=== PATIENT | male | born 1960 | race American Indian/Alaskan Native ===

== ENCOUNTER 2017-11-13 15:05 | Emergency (ER) | payer MEDICARE ==
[2017-11-13] MEDS ORDERED: NACL 0.9% 1000 ML 1,000 ML ONE (15:49)
[2017-11-13] MEDS ORDERED: NACL 0.9% 1000 ML 1,000 ML IV ONE ×2 (15:56→16:36)
[2017-11-13 16:22] LABS: Eosinophils # (Auto) 0.1 K/mm3 (0.0-0.4); Hematocrit 30.8 % (35.5-45.6); Hemoglobin 10.8 gm/dl (11.8-15.2); Lymphocytes # (Auto) 0.9 K/mm3 (1.2-5.4); Lymphocytes % (Auto) 23.8 % (13.4-35.0); Mean Corpuscular HGB Conc 35 % (32-34); Mean Corpuscular Hemoglobin 41 pg (28-32); Mean Corpuscular Volume 117 fl (84-94); Monocytes # (Auto) 0.3 K/mm3 (0.0-0.8); Monocytes % (Auto) 7.3 % (0.0-7.3); Platelet Count 143 K/mm3 (140-440); Red Blood Count 2.62 M/mm3 (3.65-5.03)
--- NOTE | 2017-11-13 16:34 | Emergency Department Report ---
ED Fall HPI - General Chief Complaint: Fall Stated Complaint: HEAT EXHAUSTION Time Seen by Provider: 11/13/17 15:56 Source: patient, EMS Mode of arrival: Stretcher - History of Present Illness Initial Comments: 57-year-old history of EtOH last drink was yesterday was brought in by EMS after he was seen falling possible seizure here for evaluation of generalized weakness possible seizure possible ethanol withdrawal after he fell EMS was worried about heat exhaustion patient denies trauma denies any back pain chest pain abdominal pain admits to history of alcohol withdrawal symptoms in the past temperature is normal on arrival patient is awake and alert with good airway without other complaints MD Complaint: fall -: Gradual, hour(s), This afternoon Fall From: standing When Fall Occurred: unsure Fall Witnessed: no Place Fall Occurred: other (neighbors yard) Loss of Consciousness: unsure Prolonged Down Time?: no Symptoms Prior to Fall: none Severity: mild, moderate Severity scale (0 -10): 2 Context: tripped/slipped, alcohol use Associated Symptoms: neck pain, numbness (recent total nurses he thinks he fell because of his chronic peripheral neuropathy denies black or bloody stool). denies: headache, chest paint, shortness of breath, abdominal pain, hematuria, unable to walk, lightheaded, vertigo, confusion - Related Data Previous Rx's Medication Instructions Recorded Last Taken Type chlordiazePOXIDE [Librium] 50 mg PO Q8H #15 capsule 11/13/17 Unknown Rx Allergies Allergy/AdvReac Type Severity Reaction Status Date / Time No Known Allergies Allergy Unverified 11/13/17 16:00 ED Review of Systems ROS: Stated complaint: HEAT EXHAUSTION Other details as noted in HPI Comment: All other systems reviewed and negative Constitutional: denies: diaphoresis, fever, malaise Eyes: denies: eye discharge, vision change ENT: denies: dental pain, hearing loss, epistaxis Respiratory: denies: shortness of breath, SOB with exertion, SOB at rest, stridor Cardiovascular: denies: chest pain, palpitations, dyspnea on exertion, orthopnea , edema, paroxysmal nocturnal dyspnea Gastrointestinal: denies: abdominal pain, nausea, vomiting, diarrhea, constipation, hematemesis, melena, hematochezia Skin: denies: rash, lesions, change in color, change in hair/nails, pruritus Neurological: weakness. denies: headache, numbness, paresthesias, confusion, abnormal gait, vertigo Psychiatric: anxiety. denies: auditory hallucinations, visual hallucinations, homicidal thoughts, suicidal thoughts Hematological/Lymphatic: denies: easy bruising ED Past Medical Hx - Past Medical History Previous Medical History?: Yes Hx Hypertension: Yes Additional medical history: GI bleed - Surgical History Past Surgical History?: No Additional Surgical History: unk - Social History Smoking Status: Never Smoker Substance Use Type: Alcohol - Medications Home Medications: Home Medications Medication Instructions Recorded Confirmed Last Taken Type chlordiazePOXIDE [Librium] 50 mg PO Q8H #15 capsule 11/13/17 Unknown Rx ED Physical Exam - General Limitations: No Limitations General appearance: alert - Head Head exam: Present: normocephalic - Eye Eye exam: Present: PERRL, EOMI - ENT ENT exam: Present: normal exam, normal orophraynx - Neck Neck exam: Present: normal inspection. Absent: tenderness, meningismus - Respiratory Respiratory exam: Present: normal lung sounds bilaterally. Absent: respiratory distress, wheezes, rales, rhonchi, stridor, chest wall tenderness, accessory muscle use, decreased breath sounds, prolonged expiratory - Cardiovascular Cardiovascular Exam: Present: regular rate, normal rhythm - GI/Abdominal GI/Abdominal exam: Present: soft. Absent: distended, tenderness, guarding, rebound, rigid, mass, pulsatile mass - Extremities Exam Extremities exam: Present: normal inspection. Absent: pedal edema, joint swelling, calf tenderness - Back Exam Back exam: Present: normal inspection. Absent: CVA tenderness (R), CVA tenderness (L), muscle spasm, paraspinal tenderness, vertebral tenderness - Neurological Exam Neurological exam: Present: alert, oriented X3, CN II-XII intact, other (tremor noted upper extremity bilaterally likely ethanol withdrawal). Absent: motor sensory deficit - Skin Skin exam: Absent: cyanosis, diaphoretic, erythema, urticaria, vesicles, petechiae, pallor, abrasion, ecchymosis ED Course Vital Signs 11/13/17 11/13/17 11/13/17 15:29 15:57 16:00 Temperature 99.1 F Pulse Rate 81 76 Respiratory 20 16 14 Rate Blood Pressure 144/85 144/85 O2 Sat by Pulse 100 97 Oximetry 06/17/18 06/17/18 06/17/18 16:01 16:30 17:00 Temperature Pulse Rate 77 112 H Respiratory 16 9 L 19 Rate Blood Pressure 173/97 165/97 O2 Sat by Pulse 100 99 99 Oximetry 11/13/17 17:30 Temperature Pulse Rate 86 Respiratory 12 Rate Blood Pressure 158/95 O2 Sat by Pulse 98 Oximetry ED Medical Decision Making - Lab Data Result diagrams: 11/13/17 16:07 11/13/17 16:06 - EKG Data -: EKG Interpreted by Md EKG shows normal: sinus rhythm Rate: normal - EKG Data Interpretation: nonspecific ST-T wave pb - Radiology Data Radiology results: report reviewed - Medical Decision Making Symptoms are consistent with ethanol w/d patient was given fluids magnesium and thiamin as well as benzodiazepine, imaging studies of the brain and neck were obtained given the read as negative by the radiologist that is no acute process , A studies to show chronic pancytopenia likely related to ethanol use however he is not having any symptoms related to this his symptoms are improving ED with improving vital signs and tremor with fluids and benzodiazepines magnesium and be stable for outpatient follow-up no evidence of hyperthermia was documented in the ED although he probably has some he related cramps and dehydration because he has been out in the sun, no other ssx trauma, no evidence of sirs or infection at tthis time, stable outpt/ f/u, trop is neg, ekg nondiagnostic repeat vital signs were stable patient is ambulatory in the ED with assistance he will have someone come get him he appears to be at baseline mental status no other injuries were identified he does appear to be having ethanol w/d with improved vital signs he does not appear to be having evidence of DTs and is therefore stable for outpatient follow-up Critical care attestation.: If time is entered above; I have spent that time in minutes in the direct care of this critically ill patient, excluding procedure time. ED Disposition Clinical Impression: Status post fall, Alcohol withdrawal syndrome, Head injury Disposition: DC-01 TO HOME OR SELFCARE Is pt being admited?: No Condition: Stable Instructions: Minor Head Injury (ED), Alcohol Withdrawal (ED) Additional Instructions: See the doctor listed return immediately if new alarming symptoms take the medicines as directed follow up as needed with [facility] for detox Prescriptions: chlordiazePOXIDE [Librium] 50 mg PO Q8H #15 capsule Referrals: PRIMARY CARE, [Primary Care Provider] - 3-5 Days JENNIFER BAIRES MD [Staff Physician] - 3-5 Days Time of Disposition: 18:14
[2017-11-13] MEDS ORDERED: MAGNESIUM SULFATE IV ONE (16:36)
[2017-11-13] MEDS ORDERED: ATIVAN IV ONE (16:36)
[2017-11-13 16:41] LABS: Alanine Aminotransferase 14 units/L (7-56); BUN/Creatinine Ratio 10; Blood Urea Nitrogen 7 mg/dL (9-20); Calcium 9.2 mg/dL (8.4-10.2); Hemolysis Index 7
[2017-11-13] MEDS ORDERED: VITAMIN B-1 100 MG in NACL 0.9% 50 ML IV ONE (17:00)
[2017-11-13] MEDS ORDERED: MAGNESIUM SULFATE 1 GM in NACL 0.9% 50 ML IV ONE (17:00)
--- NOTE | 2017-11-13 17:09 | Cat Scan Report ---
FINAL REPORT PROCEDURE: CT head without contrast. TECHNIQUE: Computerized tomography of the head was performed without contrast material. HISTORY: Weakness. COMPARISON: No prior studies are available for comparison. FINDINGS: The ventricles are normal in size. There is mild cerebral atrophy. The alba matter and white matter appear normal. There are no mass lesions. There is no intracranial hemorrhage. The calvarium appears intact. The mastoid air cells are clear as far as visualized. There is mild mucosal thickening in both maxillary sinuses. IMPRESSION: Normal study for age.
--- NOTE | 2017-11-13 17:28 | Cat Scan Report ---
FINAL REPORT PROCEDURE: CT cervical spine without contrast. TECHNIQUE: Computerized tomography of the cervical spine was performed from the skull base to T1 without contrast material. HISTORY: Patient fell, neck pain. COMPARISON: No prior studies are available for comparison. FINDINGS: The cervical vertebrae have normal height and satisfactory alignment. There are no fractures. There is no subluxation. There is mild disc space narrowing at C5-6 and C6-7. The spinal canal appears widely patent. The facet joints appear satisfactory. The neural foramina are widely patent. The prevertebral soft tissues have normal thickness. IMPRESSION: No evidence of acute cervical spine injury.
[2017-11-14 00:02] VITALS: BP 145/90
== END 2017-11-14 08:00 | disposition home or self-care (01) ==
LOC: ED 15:05
DX: S09.90XA Unspecified injury of head, initial encounter (principal); I10 Essential (primary) hypertension; F10.239 Alcohol dependence with withdrawal, unspecified; W18.30XA Fall on same level, unspecified, initial encounter; Y93.89 Activity, other specified; Y99.8 Other external cause status; Y92.89 Other specified places as the place of occurrence of the external cause
CPT/HCPCS: 36415; 70450; 72125; 80053; 82550; 84484; 85025; 93005; 93010; 96361; 96365; 96366; 96375; 99285; J2060; J3411; J3475; J7030

== ENCOUNTER 2017-11-14 11:51 | Inpatient (IN) | payer MEDICARE ==
[2017-11-14 13:53] LABS: Basophils % (Auto) 0.9 % (0.0-1.8); Eosinophils # (Auto) 0.1 K/mm3 (0.0-0.4); Eosinophils % (Auto) 2.2 % (0.0-4.3); Hematocrit 31.3 % (35.5-45.6); Hemoglobin 10.8 gm/dl (11.8-15.2); Lymphocytes # (Auto) 1.1 K/mm3 (1.2-5.4); Lymphocytes % (Auto) 25.8 % (13.4-35.0); Mean Corpuscular HGB Conc 35 % (32-34); Mean Corpuscular Hemoglobin 41 pg (28-32); Mean Corpuscular Volume 119 fl (84-94); Monocytes # (Auto) 0.5 K/mm3 (0.0-0.8); Monocytes % (Auto) 11.6 % (0.0-7.3); Platelet Count 153 K/mm3 (140-440); Red Blood Count 2.63 M/mm3 (3.65-5.03); Red Cell Distribution Width 15.9 % (13.2-15.2)
[2017-11-14 14:11] LABS: BUN/Creatinine Ratio 7; Blood Urea Nitrogen 6 mg/dL (9-20); Calcium 8.8 mg/dL (8.4-10.2); Hemolysis Index 9
[2017-11-14 16:00] LABS: Bilirubin,Urine NEG (Negative); Blood,Urine SM (Negative); Color,Urine Yellow (Yellow); Hyaline Casts,Urine 8 /LPF; Mucus,Urine FEW /HPF; Protein,Urine <15 mg/dL mg/dL (Negative); Urobilinogen,Urine < 2.0 mg/dL (<2.0)
[2017-11-14 16:26] LABS: Amphetamine Screen,Urine PRESUMPTIVE NEGATIVE; Cannabinoid Screen,Urine PRESUMPTIVE NEGATIVE; Cocaine Screen,Urine PRESUMPTIVE NEGATIVE; Methadone Screen,Urine PRESUMPTIVE NEGATIVE; Opiate Screen,Urine PRESUMPTIVE NEGATIVE
[2017-11-14 16:41] LABS: Benzodiazepines Screen,Urine PRESUMPTIVE POSITIVE
[2017-11-14] MEDS ORDERED: K-DUR PO ONE (16:46)
--- NOTE | 2017-11-14 16:46 | Emergency Department Report ---
ED General Adult HPI - General Chief complaint: Weakness Stated complaint: AMS Time Seen by Provider: 11/14/17 16:46 Source: patient, EMS Mode of arrival: Stretcher Limitations: No Limitations - History of Present Illness Initial comments: Patient is a chronic alcoholic who comes to the ED asking for alcohol detoxification. He said his last drink was 2 days ago. He is having some shakes. He denies any other medical complaints. -: Gradual Severity scale (0 -10): 6 Associated Symptoms: denies other symptoms Treatments Prior to Arrival: none - Related Data Previous Rx's Medication Instructions Recorded Last Taken Type chlordiazePOXIDE [Librium] 50 mg PO Q8H #15 capsule 11/13/17 Unknown Rx Allergies Allergy/AdvReac Type Severity Reaction Status Date / Time No Known Allergies Allergy Unverified 11/13/17 16:00 ED Review of Systems ROS: Stated complaint: AMS Other details as noted in HPI Comment: All other systems reviewed and negative Constitutional: denies: chills, fever Eyes: denies: vision change ENT: denies: ear pain Respiratory: denies: cough, shortness of breath Cardiovascular: denies: chest pain, palpitations Endocrine: no symptoms reported Gastrointestinal: denies: abdominal pain, nausea, vomiting, diarrhea, constipation Genitourinary: denies: urgency, frequency Musculoskeletal: denies: back pain, joint swelling Skin: denies: rash, change in color Neurological: denies: headache, weakness Psychiatric: denies: anxiety, depression Hematological/Lymphatic: denies: easy bleeding, easy bruising ED Past Medical Hx - Past Medical History Hx Hypertension: Yes Additional medical history: GI bleed - Surgical History Additional Surgical History: unk - Social History Smoking Status: Current Every Day Smoker Substance Use Type: Alcohol - Medications Home Medications: Home Medications Medication Instructions Recorded Confirmed Last Taken Type chlordiazePOXIDE [Librium] 50 mg PO Q8H #15 capsule 11/13/17 Unknown Rx ED Physical Exam - General Limitations: No Limitations General appearance: alert, in no apparent distress - Head Head exam: Present: atraumatic, normocephalic, normal inspection - Eye Eye exam: Present: normal appearance, PERRL, EOMI Pupils: Present: normal accommodation - ENT ENT exam: Present: normal exam, normal orophraynx - Neck Neck exam: Present: normal inspection, full ROM - Respiratory Respiratory exam: Present: normal lung sounds bilaterally - Cardiovascular Cardiovascular Exam: Present: regular rate, normal rhythm, normal heart sounds - GI/Abdominal GI/Abdominal exam: Present: soft, normal bowel sounds. Absent: distended, tenderness, guarding - Extremities Exam Extremities exam: Present: normal inspection, full ROM, normal capillary refill - Back Exam Back exam: Present: normal inspection - Skin Skin exam: Present: warm, dry, intact, normal color ED Course Vital Signs 11/14/17 12:15 Temperature 98.8 F Pulse Rate 89 Respiratory 18 Rate Blood Pressure 130/70 O2 Sat by Pulse 99 Oximetry - Reevaluation(s) Reevaluation #1: 11/14/17 17:07 Patient will be admitted to the hospitalist Dr. Hansen for further evaluation and management. ED Medical Decision Making - Lab Data Result diagrams: 11/14/17 13:42 11/14/17 13:42 - Radiology Data Radiology results: report reviewed - Medical Decision Making Alcohol withdrawal. Critical care attestation.: If time is entered above; I have spent that time in minutes in the direct care of this critically ill patient, excluding procedure time. ED Disposition Clinical Impression: Alcohol abuse Alcohol withdrawal Qualifiers: Complication of substance-induced condition: with unspecified complication Qualified Code(s): F10.239 - Alcohol dependence with withdrawal, unspecified Disposition: DC-09 OP ADMIT IP TO THIS HOSP Is pt being admited?: Yes Does the pt Need Aspirin: No Condition: Stable Referrals: PRIMARY CARE, [Primary Care Provider] - 3-5 Days Time of Disposition: 17:00
[2017-11-14] MEDS ORDERED: ATIVAN IV ONE (17:03)
[2017-11-14] MEDS ORDERED: VITAMIN B-1 100 MG, FOLVITE 1 MG, INFUVITE 10 ML in NACL 0.9% 1000 ML 1,000 ML IV ONE (18:00)
--- NOTE | 2017-11-14 18:56 | History and Physical Report ---
History of Present Illness Chief complaint: I feel sick, and im shaking, I need help History of present illness: 57 YO Male with ETOH Dependence, HTN, NIcotine Dependence presents to ED for evaluation. Pt states that he has experienced tremors, agitation, insomnia, nausea, irritability, anxiety, headaches, confusion, diaphoresis, subjective fever, and loss of appetite over the past 2 days. Pt states thta his last drink was about 2 days ago. Pt seen and evaluated in ED and found to have ETOH Withdrawl. Pt admitted to [facility] for medical stabilization. Pt denies chills, CP, Palpitations, Trauma, BRBPR, Skin Rash, Leg swelling, calf pain, productive cough, or recent ill contacts. Past History Past Medical History: hypertension Past Surgical History: No surgical history, Other (reviewed) Social history: , smoking, alcohol abuse Family history: no significant family history (reviewed) Medications and Allergies Allergies Allergy/AdvReac Type Severity Reaction Status Date / Time No Known Allergies Allergy Unverified 11/13/17 16:00 Home Medications Medication Instructions Recorded Confirmed Last Taken Type chlordiazePOXIDE [Librium] 50 mg PO Q8H #15 capsule 11/13/17 Unknown Rx Active Meds: Active Medications Thiamine HCl 100 mg/ Folic Acid 1 mg/ Multivitamins/Minerals 10 ml/ Sodium Chloride 1,011.2 mls @ 250 mls/hr IV ONCE ONE Stop: 11/14/17 22:02 Last Admin: 11/14/17 18:37 Dose: 250 mls/hr Review of Systems Constitutional: weight loss, anorexia, poor appetite, no weight gain, no fever, no chills Ears, nose, mouth and throat: no ear pain, no ear discharge, no tinnitis, no decreased hearing, no nose pain, no nasal congestion Cardiovascular: no chest pain, no orthopnea, no palpitations, no rapid/ irregular heart beat, no edema, no syncope, no lightheadedness Respiratory: no cough, no cough with sputum, no hemoptysis, no shortness of breath Gastrointestinal: nausea, no diarrhea, no constipation, no change in bowel habits, no hematemesis, no coffee ground emesis Genitourinary Male: no hematuria, no flank pain, no discharge, no urinary frequency, no urinary hesitancy Rectal: no pain, no incontinence, no bleeding Musculoskeletal: no neck stiffness, no neck pain, no low back pain, no shooting leg pain, no leg numbness/tingling Integumentary: no rash, no pruritis, no redness, no sores, no wounds Neurological: tremors, headaches, no head injury, no transient paralysis, no paralysis, no weakness, no parathesias, no numbness, no tingling, no seizures, no syncope Psychiatric: anxiety, sleep disturbances, insomnia, change in appetite, anxiety attacks, difficulties concentrating, confusion, irritability, mood swings Endocrine: no cold intolerance, no heat intolerance, no polyphagia, no excessive thirst, no polydipsia, no polyuria Hematologic/Lymphatic: no easy bruising, no easy bleeding, no lymphadenopathy, no lymphedema Allergic/Immunologic: no urticaria, no allergic rhinitis, no wheezing, no persistent infections, no anaphylaxis, no angioedema Exam - Constitutional Vitals: Temp Pulse Resp BP Pulse Ox 98.8 F 89 18 130/70 99 11/14/17 12:15 11/14/17 12:15 11/14/17 18:22 11/14/17 12:15 11/14/17 12:15 General appearance: Present: cachectic, disheveled - EENT Eyes: Present: PERRL ENT: hearing intact, clear oral mucosa - Neck Neck: Present: supple, normal ROM - Respiratory Respiratory effort: normal Respiratory: bilateral: CTA - Cardiovascular Heart Sounds: Present: S1 & S2. Absent: rub, click - Extremities Extremities: pulses symmetrical, No edema Peripheral Pulses: within normal limits - Abdominal General gastrointestinal: Present: soft, non-tender, non-distended, normal bowel sounds Male genitourinary: Present: normal - Integumentary Integumentary: Present: clear, dry, clammy, decreased turgor - Musculoskeletal Musculoskeletal: gait normal, strength equal bilaterally - Psychiatric Psychiatric: appropriate mood/affect, intact judgment & insight, agitated - Neurologic Neurologic: CNII-XII intact, moves all extremities Results - Labs CBC & Chem 7: 11/14/17 13:42 11/14/17 13:42 Labs: Abnormal lab results 11/14/17 11/14/17 11/14/17 Range/Units 13:42 13:42 13:42 WBC (4.5-11.0) K/mm3 RBC (3.65-5.03) M/mm3 Hgb (11.8-15.2) gm/dl Hct (35.5-45.6) % MCV (84-94) fl MCH (28-32) pg MCHC (32-34) % RDW (13.2-15.2) % [place] % (Auto) (0.0-7.3) % Lymph # (1.2-5.4) K/mm3 Potassium 3.1 L (3.6-5.0) mmol/L BUN 6 L (9-20) mg/dL Glucose 107 H (75-100) mg/dL Salicylates < 0.3 L (2.8-20.0) mg/dL Acetaminophen < 5.0 L (10.0-30.0) ug/mL 11/14/17 Range/Units 13:42 WBC 4.3 L (4.5-11.0) K/mm3 RBC 2.63 L (3.65-5.03) M/mm3 Hgb 10.8 L (11.8-15.2) gm/dl Hct 31.3 L (35.5-45.6) % MCV 119 H (84-94) fl MCH 41 H (28-32) pg MCHC 35 H (32-34) % RDW 15.9 H (13.2-15.2) % [place] % (Auto) 11.6 H (0.0-7.3) % Lymph # 1.1 L (1.2-5.4) K/mm3 Potassium (3.6-5.0) mmol/L BUN (9-20) mg/dL Glucose (75-100) mg/dL Salicylates (2.8-20.0) mg/dL Acetaminophen (10.0-30.0) ug/mL Assessment and Plan - Patient Problems (1) Alcohol withdrawal Current Visit: Yes Status: Acute Qualifiers: Complication of substance-induced condition: with perceptual disturbance Qualified Code(s): F10.232 - Alcohol dependence with withdrawal with perceptual disturbance Plan to address problem: Admit to [facility] for stabilization, Librium taper, banana bag, supportive care, ETOH withdrawl protocol. (2) Nicotine dependence Current Visit: Yes Status: Acute Qualifiers: Substance use status: in withdrawal Plan to address problem: Smoking cessation counseling, pt declined to pick quit date. (3) HTN (hypertension) Current Visit: Yes Status: Acute Qualifiers: Hypertension type: essential hypertension Qualified Code(s): I10 - Essential (primary) hypertension Plan to address problem: monitor bp q shift, continue medical management. (4) DVT prophylaxis Current Visit: Yes Status: Acute Plan to address problem: SCD to BLE while in bed.
[2017-11-14] MEDS ORDERED: SODIUM CHLORIDE FLUSH SYRINGE 10 ML IV PRN (18:57)
[2017-11-14] MEDS ORDERED: TYLENOL PO PRN (18:57)
[2017-11-14] MEDS ORDERED: ATIVAN IV PRN (18:57)
[2017-11-14] MEDS ORDERED: PROVENTIL IH PRN (18:57)
[2017-11-14] MEDS ORDERED: ROBAXIN PO PRN (18:57)
[2017-11-14] MEDS ORDERED: ZOFRAN IV PRN (18:57)
[2017-11-14] MEDS ORDERED: BENTYL PO PRN (18:57)
[2017-11-14] MEDS ORDERED: VISTARIL PO PRN (18:57)
[2017-11-14] MEDS: SODIUM CHLORIDE FLUSH SYRINGE 10 ML IV SCH (22:00)
[2017-11-15] MEDS: LIBRIUM PO SCH ×3 (07:30→11:29)
[2017-11-15] MEDS: PEPCID PO SCH (11:29)
[2017-11-15] MEDS: SODIUM CHLORIDE FLUSH SYRINGE 10 ML IV SCH (11:30)
[2017-11-15] MEDS ORDERED: NACL 0.9% 1000 ML 1,000 ML ONE (11:31)
[2017-11-15] MEDS: 1: FOLVITE 1 MG, INFUVITE 10 ML, VITAMIN B-1 100 MG in NACL 0.9% 1000 ML 988.8 ML 2: NA IV SCH ×3 (11:36→19:34)
--- NOTE | 2017-11-15 13:57 | Progress Note ---
Assessment and Plan Assessment and plan: Patient is a 57 yo man with ETOH Dependence, HTN and NIcotine Dependence presents to ED for ETOH Withdrawl. Pt admitted to [facility] for medical stabilization. (1) Alcohol withdrawal Current Visit: Yes Status: Acute Qualifiers: Complication of substance-induced condition: with perceptual disturbance Qualified Code(s): F10.232 - Alcohol dependence with withdrawal with perceptual disturbance Plan to address problem: Admit to [facility] for stabilization, Librium taper, banana bag, supportive care, ETOH withdrawl protocol. (2) Nicotine dependence Current Visit: Yes Status: Acute Qualifiers: Substance use status: in withdrawal Plan to address problem: Smoking cessation counseling, pt declined to pick quit date. (3) HTN (hypertension) Current Visit: Yes Status: Acute Qualifiers: Hypertension type: essential hypertension Qualified Code(s): I10 - Essential (primary) hypertension Plan to address problem: monitor bp q shift, continue medical management. (4) DVT prophylaxis Current Visit: Yes Status: Acute Plan to address problem: SCD to BLE while in bed. History Interval history: Patient was seen and examined. Follow-up on current diagnosis. Overnight uneventful. Patient denies any chest pain, shortness breath, nausea/vomiting or severe headaches. Imaging, nursing note, chart, labs and old chart reviewed. Discussed with patient. Hospitalist Physical - Physical exam Narrative exam: GEN: thin frail, NAD, Awake, Alert, Orientated x 3 HEENT: NCAT, EOMI, PERRL, OP Clear NECK: supple, no adenopathy, no thyromegaly, no JVD CVS/HEART: RRR, normal S1S2, pulses present bilaterally CHEST/LUNGS: CTA B, Symmetrical chest expansion, good air entry bilaterally GI/Abdomen: soft, NTND, good bowel sounds, no guarding or rebound /Bladder: no suprapubic tenderness, no CVA or paraspinal tenderness EXT/Skin: no c/c/e, no obvious rash MSK: FROM x 4 Neuro: CN 2-12 grossly intact, no new focal deficits Psych: calm - Constitutional Vitals: Temp Pulse Resp BP Pulse Ox 98.6 F 69 16 145/86 100 11/15/17 08:00 11/15/17 08:00 11/15/17 08:00 11/15/17 08:00 11/15/17 08:00 General appearance: Present: disheveled. Absent: cachectic Results - Labs CBC & Chem 7: 11/14/17 13:42 11/14/17 13:42 Labs: Laboratory Last Values WBC 4.3 K/mm3 (4.5-11.0) L 11/14/17 13:42 RBC 2.63 M/mm3 (3.65-5.03) L 11/14/17 13:42 Hgb 10.8 gm/dl (11.8-15.2) L 11/14/17 13:42 Hct 31.3 % (35.5-45.6) L 11/14/17 13:42 MCV 119 fl (84-94) H 11/14/17 13:42 MCH 41 pg (28-32) H 11/14/17 13:42 MCHC 35 % (32-34) H 11/14/17 13:42 RDW 15.9 % (13.2-15.2) H 11/14/17 13:42 Plt Count 153 K/mm3 (140-440) 11/14/17 13:42 Lymph % (Auto) 25.8 % (13.4-35.0) 11/14/17 13:42 [place] % (Auto) 11.6 % (0.0-7.3) H 11/14/17 13:42 Eos % (Auto) 2.2 % (0.0-4.3) 11/14/17 13:42 Baso % (Auto) 0.9 % (0.0-1.8) 11/14/17 13:42 Lymph # 1.1 K/mm3 (1.2-5.4) L 11/14/17 13:42 [place] # 0.5 K/mm3 (0.0-0.8) 11/14/17 13:42 Eos # 0.1 K/mm3 (0.0-0.4) 11/14/17 13:42 Baso # 0.0 K/mm3 (0.0-0.1) 11/14/17 13:42 Seg Neutrophils % 59.5 % (40.0-70.0) 11/14/17 13:42 Seg Neutrophils # 2.6 K/mm3 (1.8-7.7) 11/14/17 13:42 Sodium 139 mmol/L (137-145) 11/14/17 13:42 Potassium 3.1 mmol/L (3.6-5.0) L 11/14/17 13:42 Chloride 101.9 mmol/L (98-107) 11/14/17 13:42 Carbon Dioxide 24 mmol/L (22-30) 11/14/17 13:42 Anion Gap 16 mmol/L 11/14/17 13:42 BUN 6 mg/dL (9-20) L 11/14/17 13:42 Creatinine 0.9 mg/dL (0.8-1.5) 11/14/17 13:42 Estimated GFR > 60 ml/min 11/14/17 13:42 BUN/Creatinine Ratio 7 % 11/14/17 13:42 Glucose 107 mg/dL (75-100) H 11/14/17 13:42 Calcium 8.8 mg/dL (8.4-10.2) 11/14/17 13:42 Urine Color Yellow (Yellow) 11/14/17 15:34 Urine Turbidity Clear (Clear) 11/14/17 15:34 Urine pH 6.0 (5.0-7.0) 11/14/17 15:34 Ur Specific [place] 1.009 (1.003-1.030) 11/14/17 15:34 Urine Protein <15 mg/dl mg/dL (Negative) 11/14/17 15:34 Urine Glucose (UA) Neg mg/dL (Negative) 11/14/17 15:34 Urine Ketones Neg mg/dL (Negative) 11/14/17 15:34 Urine Blood Sm (Negative) 11/14/17 15:34 Urine Nitrite Neg (Negative) 11/14/17 15:34 Urine Bilirubin Neg (Negative) 11/14/17 15:34 Urine Urobilinogen < 2.0 mg/dL (<2.0) 11/14/17 15:34 Ur Leukocyte Esterase Neg (Negative) 11/14/17 15:34 Urine WBC (Auto) 1.0 /HPF (0.0-6.0) 11/14/17 15:34 Urine RBC (Auto) 3.0 /HPF (0.0-6.0) 11/14/17 15:34 U Epithel Cells (Auto) < 1.0 /HPF (0-13.0) 11/14/17 15:34 Hyaline Casts 8 /LPF 11/14/17 15:34 Urine Mucus Few /HPF 11/14/17 15:34 Salicylates < 0.3 mg/dL (2.8-20.0) L 11/14/17 13:42 Urine Opiates Screen Presumptive negative 11/14/17 15:34 Urine Methadone Screen Presumptive negative 11/14/17 15:34 Acetaminophen < 5.0 ug/mL (10.0-30.0) L 11/14/17 13:42 Ur Barbiturates Screen Presumptive negative 11/14/17 15:34 Ur Phencyclidine Scrn Presumptive negative 11/14/17 15:34 Ur Amphetamines Screen Presumptive negative 11/14/17 15:34 U Benzodiazepines Scrn Presumptive positive 11/14/17 15:34 Urine Cocaine Screen Presumptive negative 11/14/17 15:34 U Marijuana (THC) Screen Presumptive negative 11/14/17 15:34 Drugs of Abuse Note Disclamer 11/14/17 15:34 Plasma/Serum Alcohol < 0.01 % (0-0.07) 11/14/17 13:42
--- NOTE | 2017-11-16 10:53 | Progress Note ---
Assessment and Plan Assessment and plan: Patient is a 57 yo man with ETOH Dependence, HTN and NIcotine Dependence presents to ED for ETOH Withdrawl. Pt admitted to [facility] for medical stabilization. (1) Alcohol withdrawal Current Visit: Yes Status: Acute Qualifiers: Complication of substance-induced condition: with perceptual disturbance Qualified Code(s): F10.232 - Alcohol dependence with withdrawal with perceptual disturbance Plan to address problem: Admit to [facility] for stabilization, Librium taper, banana bag, supportive care, ETOH withdrawl protocol. (2) Nicotine dependence Current Visit: Yes Status: Acute Qualifiers: Substance use status: in withdrawal Plan to address problem: Smoking cessation counseling, pt declined to pick quit date. (3) HTN (hypertension) Current Visit: Yes Status: Acute Qualifiers: Hypertension type: essential hypertension Qualified Code(s): I10 - Essential (primary) hypertension Plan to address problem: monitor bp q shift, continue medical management. (4) DVT prophylaxis Current Visit: Yes Status: Acute Plan to address problem: SCD to BLE while in bed. History Interval history: Patient was seen and examined. Follow-up on current diagnosis of ETOH withdrawal. Overnight uneventful. Patient denies any chest pain, shortness breath, nausea/vomiting or severe headaches. Imaging, nursing note, chart, labs and old chart reviewed. Discussed with patient. Hospitalist Physical - Physical exam Narrative exam: GEN: thin frail, NAD, Awake, Alert, Orientated x 3 with hints HEENT: NCAT, EOMI, PERRL, OP Clear NECK: supple, no adenopathy, no thyromegaly, no JVD CVS/HEART: RRR, normal S1S2, pulses present bilaterally CHEST/LUNGS: CTA B, Symmetrical chest expansion, good air entry bilaterally GI/Abdomen: soft, NTND, good bowel sounds, no guarding or rebound /Bladder: no suprapubic tenderness, no CVA or paraspinal tenderness EXT/Skin: no c/c/e, no obvious rash MSK: FROM x 4 Neuro: CN 2-12 grossly intact, temors Psych: calm - Constitutional Vitals: Temp Pulse Resp BP Pulse Ox 97.6 F 68 18 185/88 99 11/16/17 09:00 11/16/17 09:00 11/16/17 09:00 11/16/17 09:00 11/16/17 09:00 General appearance: Present: disheveled. Absent: cachectic Results - Labs CBC & Chem 7: 11/14/17 13:42 11/14/17 13:42 Labs: Laboratory Last Values WBC 4.3 K/mm3 (4.5-11.0) L 11/14/17 13:42 RBC 2.63 M/mm3 (3.65-5.03) L 11/14/17 13:42 Hgb 10.8 gm/dl (11.8-15.2) L 11/14/17 13:42 Hct 31.3 % (35.5-45.6) L 11/14/17 13:42 MCV 119 fl (84-94) H 11/14/17 13:42 MCH 41 pg (28-32) H 11/14/17 13:42 MCHC 35 % (32-34) H 11/14/17 13:42 RDW 15.9 % (13.2-15.2) H 11/14/17 13:42 Plt Count 153 K/mm3 (140-440) 11/14/17 13:42 Lymph % (Auto) 25.8 % (13.4-35.0) 11/14/17 13:42 Garrard % (Auto) 11.6 % (0.0-7.3) H 11/14/17 13:42 Eos % (Auto) 2.2 % (0.0-4.3) 11/14/17 13:42 Baso % (Auto) 0.9 % (0.0-1.8) 11/14/17 13:42 Lymph # 1.1 K/mm3 (1.2-5.4) L 11/14/17 13:42 Garrard # 0.5 K/mm3 (0.0-0.8) 11/14/17 13:42 Eos # 0.1 K/mm3 (0.0-0.4) 11/14/17 13:42 Baso # 0.0 K/mm3 (0.0-0.1) 11/14/17 13:42 Seg Neutrophils % 59.5 % (40.0-70.0) 11/14/17 13:42 Seg Neutrophils # 2.6 K/mm3 (1.8-7.7) 11/14/17 13:42 Sodium 139 mmol/L (137-145) 11/14/17 13:42 Potassium 3.1 mmol/L (3.6-5.0) L 11/14/17 13:42 Chloride 101.9 mmol/L (98-107) 11/14/17 13:42 Carbon Dioxide 24 mmol/L (22-30) 11/14/17 13:42 Anion Gap 16 mmol/L 11/14/17 13:42 BUN 6 mg/dL (9-20) L 11/14/17 13:42 Creatinine 0.9 mg/dL (0.8-1.5) 11/14/17 13:42 Estimated GFR > 60 ml/min 11/14/17 13:42 BUN/Creatinine Ratio 7 % 11/14/17 13:42 Glucose 107 mg/dL (75-100) H 11/14/17 13:42 Calcium 8.8 mg/dL (8.4-10.2) 11/14/17 13:42 Urine Color Yellow (Yellow) 11/14/17 15:34 Urine Turbidity Clear (Clear) 11/14/17 15:34 Urine pH 6.0 (5.0-7.0) 11/14/17 15:34 Ur Specific [place] 1.009 (1.003-1.030) 11/14/17 15:34 Urine Protein <15 mg/dl mg/dL (Negative) 11/14/17 15:34 Urine Glucose (UA) Neg mg/dL (Negative) 11/14/17 15:34 Urine Ketones Neg mg/dL (Negative) 11/14/17 15:34 Urine Blood Sm (Negative) 11/14/17 15:34 Urine Nitrite Neg (Negative) 11/14/17 15:34 Urine Bilirubin Neg (Negative) 11/14/17 15:34 Urine Urobilinogen < 2.0 mg/dL (<2.0) 11/14/17 15:34 Ur Leukocyte Esterase Neg (Negative) 11/14/17 15:34 Urine WBC (Auto) 1.0 /HPF (0.0-6.0) 11/14/17 15:34 Urine RBC (Auto) 3.0 /HPF (0.0-6.0) 11/14/17 15:34 U Epithel Cells (Auto) < 1.0 /HPF (0-13.0) 11/14/17 15:34 Hyaline Casts 8 /LPF 11/14/17 15:34 Urine Mucus Few /HPF 11/14/17 15:34 Salicylates < 0.3 mg/dL (2.8-20.0) L 11/14/17 13:42 Urine Opiates Screen Presumptive negative 11/14/17 15:34 Urine Methadone Screen Presumptive negative 11/14/17 15:34 Acetaminophen < 5.0 ug/mL (10.0-30.0) L 11/14/17 13:42 Ur Barbiturates Screen Presumptive negative 11/14/17 15:34 Ur Phencyclidine Scrn Presumptive negative 11/14/17 15:34 Ur Amphetamines Screen Presumptive negative 11/14/17 15:34 U Benzodiazepines Scrn Presumptive positive 11/14/17 15:34 Urine Cocaine Screen Presumptive negative 11/14/17 15:34 U Marijuana (THC) Screen Presumptive negative 11/14/17 15:34 Drugs of Abuse Note Disclamer 11/14/17 15:34 Plasma/Serum Alcohol < 0.01 % (0-0.07) 11/14/17 13:42
[2017-11-16] MEDS: PEPCID PO SCH ×2 (11:24→22:00)
[2017-11-16] MEDS: SODIUM CHLORIDE FLUSH SYRINGE 10 ML IV SCH (11:24)
[2017-11-16] MEDS ORDERED: NACL 0.9% 1000 ML 1,000 ML ONE (11:24)
[2017-11-16] MEDS: 1: FOLVITE 1 MG, INFUVITE 10 ML, VITAMIN B-1 100 MG in NACL 0.9% 1000 ML 988.8 ML 2: NA IV SCH ×3 (11:30→21:30)
[2017-11-17] MEDS: SODIUM CHLORIDE FLUSH SYRINGE 10 ML IV SCH ×2 (01:02→09:13)
[2017-11-17] MEDS: 1: FOLVITE 1 MG, INFUVITE 10 ML, VITAMIN B-1 100 MG in NACL 0.9% 1000 ML 988.8 ML 2: NA IV SCH (05:24)
[2017-11-17] MEDS ORDERED: NACL 0.9% 1000 ML 1,000 ML IV SCH (06:00)
[2017-11-17] MEDS: PEPCID PO SCH (09:12)
--- NOTE | 2017-11-17 13:15 | Discharge Summary ---
Providers - Providers Date of Admission: 11/14/17 18:57 Date of discharge: 11/17/17 Attending physician: SLOAN PARIKH Primary care physician: [employer] Hospitalization Condition: Stable Hospital course: Patient is a 57 yo man with ETOH Dependence, HTN and NIcotine Dependence presents to ED for ETOH Withdrawl. Pt admitted to [facility] for medical stabilization. (1) Alcohol withdrawal Current Visit: Yes Status: Acute Qualifiers: Complication of substance-induced condition: with perceptual disturbance Qualified Code(s): F10.232 - Alcohol dependence with withdrawal with perceptual disturbance Plan to address problem: Admit to [facility] for stabilization, Librium taper, banana bag, supportive care, ETOH withdrawl protocol. (2) Nicotine dependence Current Visit: Yes Status: Acute Qualifiers: Substance use status: in withdrawal Plan to address problem: Smoking cessation counseling, pt declined to pick quit date. (3) HTN (hypertension), uncontrolled because he is on antihypertensives and on a regular diet Current Visit: Yes Status: Acute Qualifiers: Hypertension type: essential hypertension Qualified Code(s): I10 - Essential (primary) hypertension Plan to address problem: monitor bp q shift, continue medical management. (4) DVT prophylaxis Current Visit: Yes Status: Acute Plan to address problem: SCD to BLE while in bed. Disposition: DC-01 TO HOME OR SELFCARE Time spent for discharge: 35 minutes Core Measure Documentation - Palliative Care Palliative Care/ Comfort Measures: Not Applicable - Core Measures Any of the following diagnoses?: none - VTE Discharge Requirements Deep Vein Thrombosis/Pulmonary Embolism Present on Admission: No Has pt received <5 days of overlap therapy or INR<2.0: No Anticoagulant overlap therapy prescribed at discharge: No Contraindication No Overlap Therapy order at DC: Not Indicated Exam - Physical Exam Narrative exam: GEN: thin frail, NAD, Awake, Alert, Orientated x 3 HEENT: NCAT, EOMI, PERRL, OP Clear NECK: supple, no adenopathy, no thyromegaly, no JVD CVS/HEART: RRR, normal S1S2, pulses present bilaterally CHEST/LUNGS: CTA B, Symmetrical chest expansion, good air entry bilaterally GI/Abdomen: soft, NTND, good bowel sounds, no guarding or rebound /Bladder: no suprapubic tenderness, no CVA or paraspinal tenderness EXT/Skin: no c/c/e, no obvious rash MSK: FROM x 4 Neuro: CN 2-12 grossly intact,gait normal, no tremors Psych: calm - Constitutional Vitals: Temp Pulse Resp BP Pulse Ox 98.4 F 60 20 172/98 100 11/16/17 14:00 11/16/17 14:00 11/16/17 22:00 11/16/17 14:00 11/16/17 14:00 Plan Activity: other (no strenous activities until cleared by PCP) Diet: low salt Additional Instructions: [facility] [phone], first available appointment Follow up with: PRIMARY CAREMD [Primary Care Provider] - 3-5 Days [facility] [Other] - 7 Days Prescriptions: amLODIPine [Norvasc] 5 mg PO DAILY #30 tab Thiamine [Vitamin B-1] 100 mg PO QDAY #30 tablet
[2017-11-17] MEDS ORDERED: NORVASC PO SCH (14:00)
[2017-11-17 14:13] VITALS: BP 148/92
== END 2017-11-17 15:00 | disposition home or self-care (01) | DRG 897 ==
LOC: ED 11:51 → MSU 18:57
PROVIDERS: ADMIT Internal Medicine; ATTEND Internal Medicine
DX: F10.239 Alcohol dependence with withdrawal, unspecified (principal); F17.210 Nicotine dependence, cigarettes, uncomplicated; I10 Essential (primary) hypertension; G47.00 Insomnia, unspecified; R41.0 Disorientation, unspecified; F41.9 Anxiety disorder, unspecified; R53.1 Weakness; Z79.899 Other long term (current) drug therapy; Z71.6 Tobacco abuse counseling; Z79.1 Long term (current) use of non-steroidal anti-inflammatories (NSAID); Z68.23 Body mass index [BMI] 23.0-23.9, adult
CPT/HCPCS: 36415; 80048; 80307; 80320; 81001; 85025; 96374; 99285; G0480; J3411; J7030; Q0177

== ENCOUNTER 2019-08-08 17:53 | Emergency (ER) | payer MEDICARE ==
--- NOTE | 2019-08-08 18:53 | Emergency Department Report ---
Blank Doc - Documentation Documentation: 58-year-old male that presents with generalized body aches, SOB, and diffuse s welling. This initial assessment/diagnostic orders/clinical plan/treatment(s) is/are subject to change based on patient's health status, clinical progression and re- assessment by fellow clinical providers in the ED. Further treatment and workup at subsequent clinical providers discretion. Patient/guardians urged not to elope from the ED as their condition may be serious if not clinically assessed and managed. Initial orders include: 1- Patient sent to MAIN ED for further evaluation and treatment 2- cardiac workup
[2019-08-08 19:16] LABS: Hematocrit 30.8 % (35.5-45.6); Hemoglobin 10.6 gm/dl (11.8-15.2); Mean Corpuscular HGB Conc 34 % (32-34); Platelet Count 274 K/mm3 (140-440); Red Blood Count 2.53 M/mm3 (3.65-5.03); Red Cell Distribution Width 16.9 % (13.2-15.2)
[2019-08-08 19:17] LABS: Mean Corpuscular Volume 122 fl (84-94)
[2019-08-08 19:24] LABS: INR 1.1 (0.87-1.13)
[2019-08-08 19:25] LABS: Partial Thromboplastin Time 32.3 Sec. (24.2-36.6)
[2019-08-08 19:29] LABS: Alanine Aminotransferase 15 units/L (7-56); Albumin 4.2 g/dL (3.9-5); BUN/Creatinine Ratio 18; Blood Urea Nitrogen 14 mg/dL (9-20); Calcium 8.9 mg/dL (8.4-10.2); Hemolysis Index 8
[2019-08-08 19:52] LABS: Basophils % (Manual) 0 % (0.0-1.8); Macrocytosis 1+; Stomatocytes Few; Total Cells Counted 100
[2019-08-08 19:53] LABS: Platelet Estimate Consistent w Auto
[2019-08-08] MEDS ORDERED: FUROSEMIDE 20 MG TAB PO ONE (20:33)
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
[2019-08-08 20:44] VITALS: BP 153/87
--- NOTE | 2019-08-08 20:59 | XRay Report ---
CHEST 2 VIEWS INDICATION / CLINICAL INFORMATION: Chest Pain. COMPARISON: 03/04/13. FINDINGS: SUPPORT DEVICES: None. HEART / MEDIASTINUM: The heart size and pulmonary vasculature are normal. The aorta is normal in hans rocco. LUNGS / PLEURA: No significant pulmonary or pleural abnormality. No pneumothorax. ADDITIONAL FINDINGS: Mild chronic elevation of the right hemidiaphragm is stable. IMPRESSION: No acute abnormality or significant change. Signer Name: Donavon Vasquez MD Signed: 08/08/2019 8:54 PM Workstation Name: [id number]
== END 2019-08-08 22:30 | disposition home or self-care (01) ==
LOC: ED 17:53
DX: R60.0 Localized edema (principal); I10 Essential (primary) hypertension; Z86.69 Personal history of other diseases of the nervous system and sense organs; Z87.891 Personal history of nicotine dependence; Z98.890 Other specified postprocedural states; Z79.899 Other long term (current) drug therapy
CPT/HCPCS: 36415; 71046; 80053; 83735; 83880; 84443; 84484; 85007; 85025; 85610; 85730; 93005; 93010

== ENCOUNTER 2019-08-09 12:31 | Outpatient (CLI) | payer MEDICARE ==
--- NOTE | 2019-08-09 14:28 | Vascular Lab Report ---
BILATERAL EXTREMITY VENOUS DOPPLER ULTRASOUND HISTORY: LOYDA LOWER EXT SWELLING COMPARISON: None. TECHNIQUE: Grayscale, color and spectral Doppler imaging of the venous system of the bilateral lower extremities was performed. FINDINGS: RIGHT lower extremity: external iliac vein: Normal venous flow, compressibility, and augmentation. Greater saphenous vein: Normal venous flow, compressibility, and augmentation. Common Femoral Vein: Normal venous flow, compressibility and augmentation. Femoral Vein: Normal venous flow, compressibility and augmentation. Popliteal Vein: Normal venous flow, compressibility and augmentation. Posterior tibial vein: Normal venous flow, compressibility and augmentation. LEFT lower extremity: external iliac vein: Normal venous flow, compressibility, and augmentation. Greater saphenous vein: Normal venous flow, compressibility, and augmentation. Common Femoral Vein: Normal venous flow, compressibility and augmentation. Femoral Vein: Normal venous flow, compressibility and augmentation. Popliteal Vein: Normal venous flow, compressibility and augmentation. Posterior tibial vein: Normal venous flow, compressibility and augmentation. Additional Findings: None. IMPRESSION: No sonographic evidence of deep venous thrombosis within the bilateral lower extremities. Signer Name: Jeff Richard MD Signed: 08/09/2019 2:24 PM Workstation Name: [id number]
== END 2019-08-09 12:32 | disposition home or self-care (01) ==
LOC: VAS 12:31
PROVIDERS: ATTEND Emergency Medicine
DX: R60.0 Localized edema (principal)
CPT/HCPCS: 93970

== ENCOUNTER 2020-03-17 10:00 | Inpatient (IN) | payer MEDICARE ==
--- NOTE | 2020-03-17 11:27 | XRay Report ---
PELVIS 1 VIEW INDICATION / CLINICAL INFORMATION: Pelvic pain after fall . History of multiple falls. COMPARISON: None available. FINDINGS: BONES and JOINT(S): No acute fracture or subluxation. No significant arthritis. SOFT TISSUES: No acute abnormality. There is severe generalized atherosclerosis. ADDITIONAL FINDINGS: None. IMPRESSION: 1. No acute findings. 2. Additional findings as above. Signer Name: Juan Galindo MD Signed: 03/17/2020 11:23 AM Workstation Name: [id number]
[2020-03-17] MEDS ORDERED: LORazepam 2 MG/ML VIAL IV PRN ×2 (11:36)
[2020-03-17] MEDS ORDERED: chlordiazePOXIDE 25 MG CAP PO PRN (11:36)
--- NOTE | 2020-03-17 11:39 | Emergency Department Report ---
ED General Adult HPI - General Chief complaint: Fall Stated complaint: HEAD PAIN Time Seen by Provider: 03/17/20 10:51 Source: patient, EMS Mode of arrival: Stretcher Limitations: Physical Limitation - History of Present Illness Initial comments: The patient presents to the emergency department with a chief complaint of a fall. Since the fall the patient complains of having a headache and being dizzy. Patient is not sure if he lost his head and denies loss of consciousness. Patient states he normally drinks 18 beers a day and has only had 1 beer to drink today because he was out of alcohol at home. Patient states he was on his way to the liquor store when he fell -: Sudden Location: head Radiation: non-radiation Improves with: none Worsens with: none Associated Symptoms: denies other symptoms Treatments Prior to Arrival: none - Related Data Previous Rx's Medication Instructions Recorded Last Taken Type chlordiazePOXIDE [Librium] 50 mg PO Q8H #15 capsule 11/13/17 Unknown Rx Thiamine [Vitamin B-1] 100 mg PO QDAY #30 tablet 11/17/17 Unknown Rx amLODIPine [Norvasc] 5 mg PO DAILY #30 tab 11/17/17 Unknown Rx Furosemide [Lasix] 20 mg PO QDAY #3 tablet 08/08/19 Unknown Rx Allergies Allergy/AdvReac Type Severity Reaction Status Date / Time No Known Allergies Allergy Unverified 11/13/17 16:00 ED Review of Systems ROS: Stated complaint: HEAD PAIN Other details as noted in HPI Comment: All other systems reviewed and negative Constitutional: other. denies: chills, fever Eyes: denies: eye pain, eye discharge, vision change ENT: denies: ear pain, throat pain Respiratory: denies: cough, shortness of breath, wheezing Cardiovascular: denies: chest pain, palpitations Endocrine: no symptoms reported Gastrointestinal: denies: abdominal pain, nausea, diarrhea Genitourinary: denies: urgency, dysuria Musculoskeletal: denies: back pain, joint swelling, arthralgia Skin: denies: rash, lesions Neurological: denies: headache, weakness, paresthesias Psychiatric: denies: anxiety, depression Hematological/Lymphatic: denies: easy bleeding, easy bruising ED Past Medical Hx - Past Medical History Previous Medical History?: Yes Hx Hypertension: Yes Hx Renal Disease: Yes (ARF) Hx Seizures: Yes (alcohol withdrawal) Hx Psychiatric Treatment: Yes (alcohol abuse) Additional medical history: GI bleed,frequent falls r/t intoxication with multiple FX'S, ANEMIA WITH BLOOD TRANSFUSIONS - Surgical History Additional Surgical History: unk, MULTIPLE FXS - Social History Smoking Status: Current Every Day Smoker Substance Use Type: Alcohol - Medications Home Medications: Home Medications Medication Instructions Recorded Confirmed Last Taken Type chlordiazePOXIDE [Librium] 50 mg PO Q8H #15 capsule 11/13/17 11/15/17 Unknown Rx Thiamine [Vitamin B-1] 100 mg PO QDAY #30 tablet 11/17/17 Unknown Rx amLODIPine [Norvasc] 5 mg PO DAILY #30 tab 11/17/17 Unknown Rx Furosemide [Lasix] 20 mg PO QDAY #3 tablet 08/08/19 Unknown Rx ED Physical Exam - General Limitations: Physical Limitation General appearance: alert, in no apparent distress, other (The patient has tremors on exam) - Head Head exam: Present: atraumatic, normocephalic - Eye Eye exam: Present: normal appearance - ENT ENT exam: Present: mucous membranes moist - Neck Neck exam: Present: normal inspection - Respiratory Respiratory exam: Present: normal lung sounds bilaterally. Absent: respiratory distress - Cardiovascular Cardiovascular Exam: Present: normal rhythm, tachycardia. Absent: systolic murmur, diastolic murmur, rubs, gallop - GI/Abdominal GI/Abdominal exam: Present: soft, normal bowel sounds. Absent: distended, tenderness - Rectal Rectal exam: Present: deferred - Extremities Exam Extremities exam: Present: normal inspection - Back Exam Back exam: Present: normal inspection - Neurological Exam Neurological exam: Present: alert, oriented X3, CN II-XII intact. Absent: motor sensory deficit - Psychiatric Psychiatric exam: Present: normal affect, normal mood - Skin Skin exam: Present: warm, dry, intact, normal color. Absent: rash ED Course Vital Signs 03/17/20 03/17/20 03/17/20 10:30 10:31 11:00 Temperature 97.6 F Pulse Rate 94 H 100 H 98 H Respiratory 17 14 19 Rate Blood Pressure 134/86 134/86 138/91 O2 Sat by Pulse 98 99 98 Oximetry 03/17/20 03/17/20 03/17/20 11:30 11:45 12:00 Temperature Pulse Rate 92 H 92 H 92 H Respiratory 14 20 13 Rate Blood Pressure 143/87 143/87 148/91 O2 Sat by Pulse 98 98 98 Oximetry 03/17/20 03/17/20 03/17/20 12:15 12:30 13:00 Temperature Pulse Rate 92 H 96 H 94 H Respiratory 19 21 18 Rate Blood Pressure 143/87 146/88 152/92 O2 Sat by Pulse 98 98 99 Oximetry ED Medical Decision Making - Lab Data Result diagrams: 03/17/20 11:39 03/17/20 11:39 Lab Results 03/17/20 03/17/20 03/17/20 Range/Units 11:39 11:39 11:39 WBC 5.8 (4.5-11.0) K/mm3 RBC 2.75 L (3.65-5.03) M/mm3 Hgb 12.0 (11.8-15.2) gm/dl Hct 34.5 L (35.5-45.6) % MCV 125 H (84-94) fl MCH 44 H (28-32) pg MCHC 35 H (32-34) % RDW 16.1 H (13.2-15.2) % Plt Count 151 (140-440) K/mm3 Lymph % (Auto) 18.9 (13.4-35.0) % [place] % (Auto) 7.1 (0.0-7.3) % Eos % (Auto) 0.5 (0.0-4.3) % Baso % (Auto) 0.7 (0.0-1.8) % Lymph # (Auto) 1.1 L (1.2-5.4) K/mm3 [place] # (Auto) 0.4 (0.0-0.8) K/mm3 Eos # (Auto) 0.0 (0.0-0.4) K/mm3 Baso # (Auto) 0.0 (0.0-0.1) K/mm3 Seg Neutrophils % 72.8 H (40.0-70.0) % Seg Neutrophils # 4.2 (1.8-7.7) K/mm3 Sodium 145 (137-145) mmol/L Potassium 3.3 L (3.6-5.0) mmol/L Chloride 102.4 (98-107) mmol/L Carbon Dioxide 20 L (22-30) mmol/L Anion Gap 26 mmol/L BUN 8 L (9-20) mg/dL Creatinine 0.9 (0.8-1.3) mg/dL Estimated GFR > 60 ml/min BUN/Creatinine Ratio 9 % Glucose 108 H (75-100) mg/dL Calcium 9.0 (8.4-10.2) mg/dL Phosphorus 3.90 (2.5-4.5) mg/dL Magnesium 1.40 L (1.7-2.3) mg/dL Total Bilirubin 0.50 (0.1-1.2) mg/dL AST 82 H (5-40) units/L ALT 16 (7-56) units/L Alkaline Phosphatase 59 (35-129) units/L Ammonia (25-60) umol/L Total Protein 7.2 (6.3-8.2) g/dL Albumin 4.0 (3.9-5) g/dL Albumin/Globulin Ratio 1.3 % Plasma/Serum Alcohol 0.04 (0-0.07) % 03/17/ Range/Units 11:45 WBC (4.5-11.0) K/mm3 RBC (3.65-5.03) M/mm3 Hgb (11.8-15.2) gm/dl Hct (35.5-45.6) % MCV (84-94) fl MCH (28-32) pg MCHC (32-34) % RDW (13.2-15.2) % Plt Count (140-440) K/mm3 Lymph % (Auto) (13.4-35.0) % [place] % (Auto) (0.0-7.3) % Eos % (Auto) (0.0-4.3) % Baso % (Auto) (0.0-1.8) % Lymph # (Auto) (1.2-5.4) K/mm3 [place] # (Auto) (0.0-0.8) K/mm3 Eos # (Auto) (0.0-0.4) K/mm3 Baso # (Auto) (0.0-0.1) K/mm3 Seg Neutrophils % (40.0-70.0) % Seg Neutrophils # (1.8-7.7) K/mm3 Sodium (137-145) mmol/L Potassium (3.6-5.0) mmol/L Chloride (98-107) mmol/L Carbon Dioxide (22-30) mmol/L Anion Gap mmol/L BUN (9-20) mg/dL Creatinine (0.8-1.3) mg/dL Estimated GFR ml/min BUN/Creatinine Ratio % Glucose (75-100) mg/dL Calcium (8.4-10.2) mg/dL Phosphorus (2.5-4.5) mg/dL Magnesium (1.7-2.3) mg/dL Total Bilirubin (0.1-1.2) mg/dL AST (5-40) units/L ALT (7-56) units/L Alkaline Phosphatase (35-129) units/L Ammonia 20.0 L (25-60) umol/L Total Protein (6.3-8.2) g/dL Albumin (3.9-5) g/dL Albumin/Globulin Ratio % Plasma/Serum Alcohol (0-0.07) % - Radiology Data Radiology results: report reviewed - Medical Decision Making Placed on [place] Protocal Ativen given Critical Care Time: Yes Critical care time in (mins) excluding proc time.: 35 Critical care attestation.: If time is entered above; I have spent that time in minutes in the direct care of this critically ill patient, excluding procedure time. ED Disposition Clinical Impression: DTs (delirium tremens) Alcohol withdrawal Qualifiers: Complication of substance-induced condition: with perceptual disturbance Qualified Code(s): F10.232 - Alcohol dependence with withdrawal with perceptual disturbance Disposition: DC09 OP ADMIT IP TO THIS HOSP Is pt being admited?: Yes Does the pt Need Aspirin: No Condition: Fair Referrals: PRIMARY CARE, [Primary Care Provider] - 3-5 Days
--- NOTE | 2020-03-17 11:41 | Cat Scan Report ---
CT HEAD WITHOUT CONTRAST INDICATION / CLINICAL INFORMATION: headache/fall. TECHNIQUE: Axial imaging performed from the skull apex through the skull base without the use of cont rast. Sagittal and coronal reformatted images. All CT scans at this location are performed using CT dose reduction for ALARA by means of automated exposure control. COMPARISON: 11/13/2017. FINDINGS: CEREBRAL PARENCHYMA: No significant abnormality. No acute territorial infarct. Mild age appropriate v olume loss is again noted. HEMORRHAGE: None. EXTRA-AXIAL SPACES: Normal in size and morphology for the patient's age. VENTRICULAR SYSTEM: Normal in size and morphology for the patient's age. MIDLINE SHIFT OR HERNIATION: None. CEREBELLUM / BRAINSTEM: No significant abnormality. CALVARIUM: No significant abnormality. ORBITS: Chronic right medial orbital wall fracture is unchanged. PARANASAL SINUSES / MASTOID AIR CELLS: Mild chronic mucoperiosteal thickening in the visualized maxil andrew sinuses. SOFT TISSUES of HEAD: No significant abnormality. ADDITIONAL FINDINGS: None. IMPRESSION: No acute intracranial abnormality. Age appropriate volume loss. No significant change since 11/13/2017 . Signer Name: Andrew Lima Jr, MD Signed: 03/17/2020 11:36 AM Workstation Name: [id number]
[2020-03-17] MEDS: LORazepam 2 MG/ML VIAL IV PRN ×3 (11:58→21:24)
[2020-03-17] MEDS ORDERED: THIAMINE 100 MG, FOLIC ACID 1 MG, MULTIPLE VITAMIN INJ, ADULT 10 ML in SODIUM CHLORIDE ... IV ONE (12:00)
[2020-03-17 12:01] LABS: Basophils % (Auto) 0.7 % (0.0-1.8); Eosinophils % (Auto) 0.5 % (0.0-4.3); Hematocrit 34.5 % (35.5-45.6); Lymphocytes # (Auto) 1.1 K/mm3 (1.2-5.4); Lymphocytes % (Auto) 18.9 % (13.4-35.0); Mean Corpuscular HGB Conc 35 % (32-34); Monocytes # (Auto) 0.4 K/mm3 (0.0-0.8); Monocytes % (Auto) 7.1 % (0.0-7.3); Platelet Count 151 K/mm3 (140-440); Red Blood Count 2.75 M/mm3 (3.65-5.03); Red Cell Distribution Width 16.1 % (13.2-15.2)
[2020-03-17 12:02] LABS: Mean Corpuscular Volume 125 fl (84-94)
[2020-03-17 12:33] LABS: Alanine Aminotransferase 16 units/L (7-56); BUN/Creatinine Ratio 9; Blood Urea Nitrogen 8 mg/dL (9-20); Hemolysis Index 11
--- NOTE | 2020-03-17 15:25 | History and Physical Report ---
History of Present Illness Chief complaint: I fell History of present illness: 59 YO Male with ETOH Dependence, HTN, Nicotine Dependence, Cerebral Atherosclerosis, Recurrent Falls presents to ED for evaluation. Patient states that he felt weak while walking to the liquor store and subsequently fell. Pt states that he has experienced tremors, agitation, insomnia, nausea, irritability, anxiety, headaches, confusion, diaphoresis, and loss of appetite over the past 1 day. Pt states that his last drink was 1 day ago. Patient acknowledges drinking approximately 18 beers per day but ran out of beer on yesterday. EMS was notified and upon arrival the patient was found to be in distress and subsequently transported to [facility] for further care and evaluation of the aforementioned symptoms. Pt seen and evaluated in ED. all lab and imaging studies reviewed. The patient was found to have ETOH Withdrawl as well as s ymptoms consistent with delirium tremens. Pt admitted to medical floor due to increased risk of worsening symptoms. Pt denies fever, chills, CP, Palpitations, Trauma, BRBPR, Skin Rash, Leg swelling, calf pain, productive cough, or recent ill contacts, or known exposure to COVID-19. Prior admission on 11/14/17 reviewed. All medication listed at time of admission has been reconciled. Advanced care planning conducted in ED. Past History Past Medical History: hypertension, other (See HPI) Past Surgical History: No surgical history, Other (Reviewed) Social history: , smoking, alcohol abuse Family history: hypertension Medications and Allergies Allergies Allergy/AdvReac Type Severity Reaction Status Date / Time No Known Allergies Allergy Unverified 11/13/17 16:00 Home Medications Medication Instructions Recorded Confirmed Last Taken Type chlordiazePOXIDE [Librium] 50 mg PO Q8H #15 capsule 18 11/15/17 Unknown Rx Thiamine [Vitamin B-1] 100 mg PO QDAY #30 tablet 11/17/17 Unknown Rx amLODIPine [Norvasc] 5 mg PO DAILY #30 tab 11/17/17 Unknown Rx Furosemide [Lasix] 20 mg PO QDAY #3 tablet 08/08/19 Unknown Rx Active Meds: Active Medications Chlordiazepoxide HCl (Librium) 50 mg PO Q1H PRN PRN Reason: CIWA-Ar 8-15 Chlordiazepoxide HCl (Librium) 100 mg PO Q1H PRN PRN Reason: CIWA-Ar 16-25 Thiamine HCl 100 mg/ Folic Acid 1 mg/ Multivitamins/Minerals 10 ml/ Sodium Chloride 1,011.2 mls @ 250 mls/hr IV ONCE ONE Stop: 03/17/20 16:02 Last Admin: 03/17/20 13:02 Dose: 250 mls/hr Documented by: Lorazepam (Ativan) 2 mg IV Q1H PRN PRN Reason: CIWA-Ar 8-15 Last Admin: 03/17/20 13:08 Dose: 2 mg Documented by: Lorazepam (Ativan) 4 mg IV Q1H PRN PRN Reason: CIWA-Ar 16-25 Lorazepam (Ativan) 4 mg IV Q15MIN PRN PRN Reason: CIWA-Ar >25 Review of Systems ROS unobtainable: due to mental status Exam - Constitutional Vitals: Temp Pulse Resp BP Pulse Ox 97.6 F 94 H 18 152/92 99 03/17/20 10:31 03/17/20 13:00 03/17/20 13:00 03/17/20 13:00 03/17/20 13:00 General appearance: Present: mild distress - EENT Eyes: Present: PERRL ENT: hearing intact, clear oral mucosa - Neck Neck: Present: supple, normal ROM - Respiratory Respiratory effort: normal Respiratory: bilateral: CTA - Cardiovascular Heart Sounds: Present: S1 & S2. Absent: rub, click - Extremities Extremities: pulses symmetrical, No edema Peripheral Pulses: within normal limits - Abdominal General gastrointestinal: Present: soft, non-tender, non-distended, normal bowel sounds Male genitourinary: Present: normal - Integumentary Integumentary: Present: clear, warm, dry - Musculoskeletal Musculoskeletal: generalized weakness - Psychiatric Psychiatric: appropriate mood/affect, no memory intact - Neurologic Neurologic: CNII-XII intact, no focal deficits, moves all extremities Results - Labs CBC & Chem 7: 03/17/20 11:39 03/17/20 11:39 Labs: Abnormal lab results 03/17/20 03/17/20 03/17/20 Range/Units 11:39 11:39 11:45 RBC 2.75 L (3.65-5.03) M/mm3 Hct 34.5 L (35.5-45.6) % MCV 125 H (84-94) fl MCH 44 H (28-32) pg MCHC 35 H (32-34) % RDW 16.1 H (13.2-15.2) % Lymph # (Auto) 1.1 L (1.2-5.4) K/mm3 Seg Neutrophils % 72.8 H (40.0-70.0) % Potassium 3.3 L (3.6-5.0) mmol/L Carbon Dioxide 20 L (22-30) mmol/L BUN 8 L (9-20) mg/dL Glucose 108 H (75-100) mg/dL Magnesium 1.40 L (1.7-2.3) mg/dL AST 82 H (5-40) units/L Ammonia 20.0 L (25-60) umol/L Assessment and Plan - Patient Problems (1) Alcohol withdrawal Current Visit: Yes Status: Acute Qualifiers: Complication of substance-induced condition: with perceptual disturbance Qualified Code(s): F10.232 - Alcohol dependence with withdrawal with perceptual disturbance Plan to address problem: Alcohol withdrawal protocol: Thiamine, folic acid, multivitamin, CIWA protocol, IV fluid resuscitation therapy (2) Nicotine dependence Current Visit: Yes Status: Acute Qualifiers: Nicotine product type: cigarettes Substance use status: in withdrawal Qualified Code(s): F17.213 - Nicotine dependence, cigarettes, with withdrawal Plan to address problem: Supportive care, smoking cessation counseling, behavior change counseling, +15 minutes (3) Alcohol dependence Current Visit: Yes Status: Acute Qualifiers: Complication of substance-induced condition: with perceptual disturbance Plan to address problem: Supportive care, outpatient follow-up with Alcoholics Anonymous at time of discharge, supportive care. Behavior change counseling, +15 minutes. (4) DTs (delirium tremens) Current Visit: Yes Status: Acute Plan to address problem: Thiamine, folic acid, multivitamin, benzodiazepine therapy as needed as per CIWA protocol. Aspiration precautions, fall precautions, neuro check. (5) DVT prophylaxis Current Visit: No Status: Acute Plan to address problem: SCD to bilateral lower extremities while in bed (6) Advance care planning Current Visit: Yes Status: Acute Plan to address problem: Disease education conducted, patient is full code, +30 minutes.
[2020-03-17] MEDS ORDERED: ONDANSETRON 4 MG/2 ML INJ IV PRN (15:28)
[2020-03-17] MEDS ORDERED: ALBUTEROL 2.5 MG/3 ML NEBU IH PRN (15:28)
[2020-03-17] MEDS ORDERED: ACETAMINOPHEN 325 MG TAB PO PRN (15:28)
[2020-03-17] MEDS: chlordiazePOXIDE 25 MG CAP PO PRN (21:24)
[2020-03-17] MEDS: SODIUM CHLORIDE 0.9% 1000 ML 1,000 ML IV SCH (21:30)
[2020-03-18 05:36] LABS: BUN/Creatinine Ratio 10; Blood Urea Nitrogen 8 mg/dL (9-20); Calcium 8.1 mg/dL (8.4-10.2); Hemolysis Index 7
[2020-03-18] MEDS: SODIUM CHLORIDE 0.9% 1000 ML 1,000 ML IV SCH ×2 (06:32→21:58)
[2020-03-18] MEDS ORDERED: POTASSIUM CHLORIDE 20 MEQ PACKET FEEDTUBE ONE (06:41)
[2020-03-18] MEDS ORDERED: POTASSIUM CHLORIDE 10 MEQ 10 MEQ/100 ML BAG IV ONE ×2 (07:00→08:00)
[2020-03-18] MEDS: LORazepam 2 MG/ML VIAL IV PRN ×2 (09:31→13:21)
[2020-03-18] MEDS: POTASSIUM CHLORIDE 10 MEQ 10 MEQ/100 ML BAG IV SCH ×4 (10:30→16:30)
[2020-03-18 15:00] LABS: BUN/Creatinine Ratio 8; Blood Urea Nitrogen 7 mg/dL (9-20); Calcium 8.5 mg/dL (8.4-10.2); Hemolysis Index 9
--- NOTE | 2020-03-18 15:04 | Progress Note ---
Assessment and Plan Assessment and plan: 59 YO Male with ETOH Dependence, HTN, Nicotine Dependence, Cerebral Atherosclerosis, Recurrent Falls presents to ED for evaluation. Patient states that he felt weak while walking to the liquor store and subsequently fell. Pt states that he has experienced tremors, agitation, insomnia, nausea, irritabi lity, anxiety, headaches, confusion, diaphoresis, and loss of appetite over the past 1 day. Pt states that his last drink was 1 day ago. Patient acknowledges drinking approximately 18 beers per day but ran out of beer on yesterday. EMS was notified and upon arrival the patient was found to be in distress and subsequently transported to [facility] for further care and evaluation of the aforementioned symptoms. Pt seen and evaluated in ED. all lab and imaging studies reviewed. The patient was found to have ETOH Withdrawl as well as symptoms consistent with delirium tremens. Pt admitted to medical floor due to increased risk of worsening symptoms. Pt denies fever, chills, CP, Palpitations, Trauma, BRBPR, Skin Rash, Leg swelling, calf pain, productive cough, or recent ill contacts, or known exposure to COVID-19. Prior admission on 11/14/17 reviewed. All medication listed at time of admission has been reconciled. Advanced care planning conducted in ED. 03/18. Has no complaints. On CIWA protocol. Has low K and low Magnesium. Continue replacement. - Patient Problems (1) Alcohol withdrawal Current Visit: Yes Status: Acute Qualifiers: Complication of substance-induced condition: with perceptual disturbance Qualified Code(s): F10.232 - Alcohol dependence with withdrawal with perceptual disturbance Plan to address problem: Alcohol withdrawal protocol: Thiamine, folic acid, multivitamin, CIWA protocol, IV fluid resuscitation therapy (2) Nicotine dependence Current Visit: Yes Status: Acute Qualifiers: Nicotine product type: cigarettes Substance use status: in withdrawal Qualified Code(s): F17.213 - Nicotine dependence, cigarettes, with withdrawal Plan to address problem: Supportive care, smoking cessation counseling, behavior change counseling, +15 minutes (3) Alcohol dependence Current Visit: Yes Status: Acute Qualifiers: Complication of substance-induced condition: with perceptual disturbance Plan to address problem: Supportive care, outpatient follow-up with Alcoholics Anonymous at time of discharge, supportive care. Behavior change counseling, +15 minutes. (4) Electrolyte abnormalities Current Visit: Yes Status: Acute Plan to address problem: Replete PRN (5) DVT prophylaxis Current Visit: No Status: Acute Plan to address problem: SCD to bilateral lower extremities while in bed (6) Advance care planning Current Visit: Yes Status: Acute Plan to address problem: Disease education conducted, patient is full code, +30 minutes. History Interval history: Patient seen and examined at bedside. No complaints. On [facility] protocol. Hospitalist Physical - Constitutional Vitals: Temp Pulse Resp BP Pulse Ox 98.7 F 89 18 154/92 98 03/18/20 03:46 03/18/20 03:46 03/18/20 03:46 03/18/20 03:46 03/18/20 03:46 General appearance: Present: no acute distress - EENT Eyes: Present: PERRL - Neck Neck: Present: supple - Respiratory Respiratory: bilateral: CTA - Cardiovascular Rhythm: regular Heart Sounds: Present: S1 & S2 - Extremities Extremities: No edema - Abdominal General gastrointestinal: soft, non-tender, non-distended, normal bowel sounds - Psychiatric Psychiatric: appropriate mood/affect - Neurologic Neurologic: CNII-XII intact Results - Labs CBC & Chem 7: 03/17/20 11:39 03/18/20 14:23 Labs: Laboratory Last Values WBC 5.8 K/mm3 (4.5-11.0) 03/17/20 11:39 RBC 2.75 M/mm3 (3.65-5.03) L 03/17/20 11:39 Hgb 12.0 gm/dl (11.8-15.2) 03/17/20 11:39 Hct 34.5 % (35.5-45.6) L 03/17/20 11:39 MCV 125 fl (84-94) H 03/17/20 11:39 MCH 44 pg (28-32) H 03/17/20 11:39 MCHC 35 % (32-34) H 03/17/20 11:39 RDW 16.1 % (13.2-15.2) H 03/17/20 11:39 Plt Count 151 K/mm3 (140-440) 03/17/20 11:39 Lymph % (Auto) 18.9 % (13.4-35.0) 03/17/20 11:39 [place] % (Auto) 7.1 % (0.0-7.3) 03/17/20 11:39 Eos % (Auto) 0.5 % (0.0-4.3) 03/17/20 11:39 Baso % (Auto) 0.7 % (0.0-1.8) 03/17/20 11:39 Lymph # (Auto) 1.1 K/mm3 (1.2-5.4) L 03/17/20 11:39 [place] # (Auto) 0.4 K/mm3 (0.0-0.8) 03/17/20 11:39 Eos # (Auto) 0.0 K/mm3 (0.0-0.4) 03/17/20 11:39 Baso # (Auto) 0.0 K/mm3 (0.0-0.1) 03/17/20 11:39 Seg Neutrophils % 72.8 % (40.0-70.0) H 03/17/20 11:39 Seg Neutrophils # 4.2 K/mm3 (1.8-7.7) 03/17/20 11:39 Sodium 139 mmol/L (137-145) 03/18/20 14:23 Potassium 3.8 mmol/L (3.6-5.0) D 03/18/20 14:23 Chloride 103.9 mmol/L (98-107) 03/18/20 14:23 Carbon Dioxide 23 mmol/L (22-30) 03/18/20 14:23 Anion Gap 16 mmol/L 03/18/20 14:23 BUN 7 mg/dL (9-20) L 03/18/20 14:23 Creatinine 0.9 mg/dL (0.8-1.3) 03/18/20 14:23 Estimated GFR > 60 ml/min 03/18/20 14:23 BUN/Creatinine Ratio 8 % 03/18/20 14:23 Glucose 106 mg/dL (75-100) H 03/18/20 14:23 Calcium 8.5 mg/dL (8.4-10.2) 03/18/20 14:23 Phosphorus 3.90 mg/dL (2.5-4.5) 03/17/20 11:39 Magnesium 1.30 mg/dL (1.7-2.3) L 03/18/20 14:23 Total Bilirubin 0.50 mg/dL (0.1-1.2) 03/17/20 11:39 AST 82 units/L (5-40) H 03/17/20 11:39 ALT 16 units/L (7-56) 03/17/20 11:39 Alkaline Phosphatase 59 units/L (35-129) 03/17/20 11:39 Ammonia 20.0 umol/L (25-60) L 03/17/20 11:45 Total Protein 7.2 g/dL (6.3-8.2) 03/17/20 11:39 Albumin 4.0 g/dL (3.9-5) 03/17/20 11:39 Albumin/Globulin Ratio 1.3 % 03/17/20 11:39 Plasma/Serum Alcohol 0.04 % (0-0.07) 03/17/20 11:39 Brown/IV: Voiding Method Condom Catheter IV Catheter Type [Right Hand] Peripheral IV Active Medications - Current Medications Current Medications: Generic Name Dose Route Start Last Admin Trade Name Freq PRN Reason Stop Dose Admin Acetaminophen 650 mg 03/17/20 15:28 Tylenol PO Q4H PRN Pain MILD(1-3)/Fever >100.5/JOY Albuterol 2.5 mg 03/17/20 15:28 Proventil IH Q4HRT PRN Shortness Of Breath Chlordiazepoxide HCl 50 mg 03/17/20 11:36 03/17/20 21:24 Librium PO 50 mg Q1H PRN Administration CIWA-Ar 8-15 Chlordiazepoxide HCl 100 mg 03/17/20 11:36 Librium PO Q1H PRN CIWA-Ar 16-25 Sodium Chloride 1,000 mls @ 100 mls/hr 03/17/20 15:30 03/18/20 06:32 Nacl 0.9% 1000 Ml IV 100 mls/hr DIRECT MARIFER Administration Magnesium Sulfate 2 gm in 50 mls @ 25 mls/hr 03/18/20 15:01 Magnesium Sulfate 2gm/50ml IV 03/18/20 17:00 ONCE ONE Lorazepam 2 mg 03/17/20 11:36 03/18/20 13:21 Ativan IV 2 mg Q1H PRN Administration CIWA-Ar 8-15 Lorazepam 4 mg 03/17/20 11:36 Ativan IV Q1H PRN CIWA-Ar 16-25 Lorazepam 4 mg 03/17/20 11:36 Ativan IV Q15MIN PRN CIWA-Ar >25 Ondansetron HCl 4 mg 03/17/20 15:28 Zofran IV Q8H PRN Nausea And Vomiting Sodium Chloride 10 ml 03/17/20 22:00 03/17/20 21:24 Sodium Chloride Flush Syringe 10 Ml IV 10 ml BID MARIFER Administration Sodium Chloride 10 ml 03/17/20 15:28 Sodium Chloride Flush Syringe 10 Ml IV PRN PRN LINE FLUSH
[2020-03-18] MEDS ORDERED: MAGNESIUM SULFATE 2 GM/50 ML BAG IV ONE (15:30)
[2020-03-18] MEDS: chlordiazePOXIDE 25 MG CAP PO PRN (22:01)
[2020-03-19 04:13] LABS: Basophils % (Auto) 0.8 % (0.0-1.8); Eosinophils # (Auto) 0.1 K/mm3 (0.0-0.4); Eosinophils % (Auto) 1.8 % (0.0-4.3); Hematocrit 29.5 % (35.5-45.6); Hemoglobin 10.4 gm/dl (11.8-15.2); Lymphocytes # (Auto) 1.6 K/mm3 (1.2-5.4); Lymphocytes % (Auto) 39.2 % (13.4-35.0); Mean Corpuscular HGB Conc 35 % (32-34); Monocytes # (Auto) 0.4 K/mm3 (0.0-0.8); Monocytes % (Auto) 9.2 % (0.0-7.3); Platelet Count 130 K/mm3 (140-440); Red Blood Count 2.35 M/mm3 (3.65-5.03); Red Cell Distribution Width 15.7 % (13.2-15.2)
[2020-03-19 04:14] LABS: Mean Corpuscular Volume 125 fl (84-94)
[2020-03-19 04:32] LABS: Alanine Aminotransferase 13 units/L (7-56); Albumin 3.2 g/dL (3.9-5); BUN/Creatinine Ratio 6; Blood Urea Nitrogen 5 mg/dL (9-20); Calcium 8.4 mg/dL (8.4-10.2); Hemolysis Index 25
[2020-03-19] MEDS: LORazepam 2 MG/ML VIAL IV PRN ×3 (10:03→21:23)
[2020-03-19] MEDS: chlordiazePOXIDE 25 MG CAP PO PRN ×2 (10:03→13:42)
--- NOTE | 2020-03-19 16:17 | Progress Note ---
Assessment and Plan Assessment and plan: 59 YO Male with ETOH Dependence, HTN, Nicotine Dependence, Cerebral Atherosclerosis, Recurrent Falls presents to ED for evaluation. Patient states that he felt weak while walking to the liquor store and subsequently fell. Pt states that he has experienced tremors, agitation, insomnia, nausea, irritabi lity, anxiety, headaches, confusion, diaphoresis, and loss of appetite over the past 1 day. Pt states that his last drink was 1 day ago. Patient acknowledges drinking approximately 18 beers per day but ran out of beer on yesterday. EMS was notified and upon arrival the patient was found to be in distress and subsequently transported to [facility] for further care and evaluation of the aforementioned symptoms. Pt seen and evaluated in ED. all lab and imaging studies reviewed. The patient was found to have ETOH Withdrawl as well as symptoms consistent with delirium tremens. Pt admitted to medical floor due to increased risk of worsening symptoms. Pt denies fever, chills, CP, Palpitations, Trauma, BRBPR, Skin Rash, Leg swelling, calf pain, productive cough, or recent ill contacts, or known exposure to COVID-19. Prior admission on 11/14/17 reviewed. All medication listed at time of admission has been reconciled. Advanced care planning conducted in ED. 03/18. Has no complaints. On CIWA protocol. Has low K and low Magnesium. Continue replacement. - Patient Problems (1) Alcohol withdrawal Current Visit: Yes Status: Acute Qualifiers: Complication of substance-induced condition: with perceptual disturbance Qualified Code(s): F10.232 - Alcohol dependence with withdrawal with perceptual disturbance Plan to address problem: Alcohol withdrawal protocol: Thiamine, folic acid, multivitamin, CIWA protocol, IV fluid resuscitation therapy (2) Nicotine dependence Current Visit: Yes Status: Acute Qualifiers: Nicotine product type: cigarettes Substance use status: in withdrawal Qualified Code(s): F17.213 - Nicotine dependence, cigarettes, with withdrawal Plan to address problem: Supportive care, smoking cessation counseling, behavior change counseling, +15 minutes (3) Alcohol dependence Current Visit: Yes Status: Acute Qualifiers: Complication of substance-induced condition: with perceptual disturbance Plan to address problem: Supportive care, outpatient follow-up with Alcoholics Anonymous at time of discharge, supportive care. Behavior change counseling, +15 minutes. (4) Electrolyte abnormalities Current Visit: Yes Status: Acute Plan to address problem: Replete PRN (5) DVT prophylaxis Current Visit: No Status: Acute Plan to address problem: SCD to bilateral lower extremities while in bed (6) Advance care planning Current Visit: Yes Status: Acute Plan to address problem: Disease education conducted, patient is full code, +30 minutes. History Interval history: Patient seen and examined at bedside. No complaints. On CIWA protocol. CIWA 11 this morning. Hospitalist Physical - Constitutional Vitals: Temp Pulse Resp BP Pulse Ox 98.0 F 70 18 123/84 99 03/19/20 07:57 03/19/20 11:00 03/19/20 07:57 03/19/20 10:24 03/19/20 10:20 General appearance: Present: no acute distress - EENT Eyes: Present: PERRL - Respiratory Respiratory: bilateral: CTA - Cardiovascular Rhythm: regular Heart Sounds: Present: S1 & S2 - Extremities Extremities: No edema - Abdominal General gastrointestinal: soft, non-tender, non-distended, normal bowel sounds - Psychiatric Psychiatric: appropriate mood/affect - Neurologic Neurologic: CNII-XII intact Results - Labs CBC & Chem 7: 03/19/20 04:01 03/19/20 04:01 Labs: Laboratory Last Values WBC 4.0 K/mm3 (4.5-11.0) L 03/19/20 04:01 RBC 2.35 M/mm3 (3.65-5.03) L 03/19/20 04:01 Hgb 10.4 gm/dl (11.8-15.2) L 03/19/20 04:01 Hct 29.5 % (35.5-45.6) L 03/19/20 04:01 MCV 125 fl (84-94) H 03/19/20 04:01 MCH 44 pg (28-32) H 03/19/20 04:01 MCHC 35 % (32-34) H 03/19/20 04:01 RDW 15.7 % (13.2-15.2) H 03/19/20 04:01 Plt Count 130 K/mm3 (140-440) L 03/19/20 04:01 Lymph % (Auto) 39.2 % (13.4-35.0) H 03/19/20 04:01 [place] % (Auto) 9.2 % (0.0-7.3) H 03/19/20 04:01 Eos % (Auto) 1.8 % (0.0-4.3) 03/19/20 04:01 Baso % (Auto) 0.8 % (0.0-1.8) 03/19/20 04:01 Lymph # (Auto) 1.6 K/mm3 (1.2-5.4) 03/19/20 04:01 [place] # (Auto) 0.4 K/mm3 (0.0-0.8) 03/19/20 04:01 Eos # (Auto) 0.1 K/mm3 (0.0-0.4) 03/19/20 04:01 Baso # (Auto) 0.0 K/mm3 (0.0-0.1) 03/19/20 04:01 Seg Neutrophils % 49.0 % (40.0-70.0) 03/19/20 04:01 Seg Neutrophils # 2.0 K/mm3 (1.8-7.7) 03/19/20 04:01 Sodium 138 mmol/L (137-145) 03/19/20 04:01 Potassium 3.5 mmol/L (3.6-5.0) L 03/19/20 04:01 Chloride 104.1 mmol/L (98-107) 03/19/20 04:01 Carbon Dioxide 23 mmol/L (22-30) 03/19/20 04:01 Anion Gap 14 mmol/L 03/19/20 04:01 BUN 5 mg/dL (9-20) L 03/19/20 04:01 Creatinine 0.8 mg/dL (0.8-1.3) 03/19/20 04:01 Estimated GFR > 60 ml/min 03/19/20 04:01 BUN/Creatinine Ratio 6 % 03/19/20 04:01 Glucose 108 mg/dL (75-100) H 03/19/20 04:01 Calcium 8.4 mg/dL (8.4-10.2) 03/19/20 04:01 Phosphorus 3.90 mg/dL (2.5-4.5) 03/17/20 11:39 Magnesium 1.30 mg/dL (1.7-2.3) L 03/18/20 14:23 Total Bilirubin 0.30 mg/dL (0.1-1.2) 03/19/20 04:01 AST 39 units/L (5-40) 03/19/20 04:01 ALT 13 units/L (7-56) 03/19/20 04:01 Alkaline Phosphatase 51 units/L (35-129) 03/19/20 04:01 Ammonia 20.0 umol/L (25-60) L 03/17/20 11:45 Total Protein 5.9 g/dL (6.3-8.2) L 03/19/20 04:01 Albumin 3.2 g/dL (3.9-5) L 03/19/20 04:01 Albumin/Globulin Ratio 1.2 % 03/19/20 04:01 Plasma/Serum Alcohol 0.04 % (0-0.07) 03/17/20 11:39 Brown/IV: Voiding Method Condom Catheter IV Catheter Type [Right Hand] Peripheral IV Active Medications - Current Medications Current Medications: Generic Name Dose Route Start Last Admin Trade Name Freq PRN Reason Stop Dose Admin Acetaminophen 650 mg 03/17/20 15:28 Tylenol PO Q4H PRN Pain MILD(1-3)/Fever >100.5/JOY Albuterol 2.5 mg 03/17/20 15:28 Proventil IH Q4HRT PRN Shortness Of Breath Chlordiazepoxide HCl 50 mg 03/17/20 11:36 03/19/20 13:42 Librium PO 50 mg Q1H PRN Administration CIWA-Ar 8-15 Chlordiazepoxide HCl 100 mg 03/17/20 11:36 Librium PO Q1H PRN CIWA-Ar 16-25 Sodium Chloride 1,000 mls @ 100 mls/hr 03/17/20 15:30 03/18/20 21:58 Nacl 0.9% 1000 Ml IV 100 mls/hr DIRECT MARIFER Administration Lorazepam 2 mg 03/17/20 11:36 03/19/20 10:03 Ativan IV 2 mg Q1H PRN Administration CIWA-Ar 8-15 Lorazepam 4 mg 03/17/20 11:36 Ativan IV Q1H PRN CIWA-Ar 16-25 Lorazepam 4 mg 03/17/20 11:36 Ativan IV Q15MIN PRN CIWA-Ar >25 Ondansetron HCl 4 mg 03/17/20 15:28 Zofran IV Q8H PRN Nausea And Vomiting Sodium Chloride 10 ml 03/17/20 22:00 03/19/20 09:31 Sodium Chloride Flush Syringe 10 Ml IV 10 ml BID MARIFER Administration Sodium Chloride 10 ml 03/17/20 15:28 Sodium Chloride Flush Syringe 10 Ml IV PRN PRN LINE FLUSH
[2020-03-19] MEDS: SODIUM CHLORIDE 0.9% 1000 ML 1,000 ML IV SCH (18:11)
[2020-03-20] MEDS: SODIUM CHLORIDE 0.9% 1000 ML 1,000 ML IV SCH (03:55)
[2020-03-20 09:01] LABS: Eosinophils # (Auto) 0.1 K/mm3 (0.0-0.4); Eosinophils % (Auto) 1.6 % (0.0-4.3); Hematocrit 31.3 % (35.5-45.6); Hemoglobin 10.8 gm/dl (11.8-15.2); Lymphocytes # (Auto) 1.4 K/mm3 (1.2-5.4); Lymphocytes % (Auto) 32.8 % (13.4-35.0); Mean Corpuscular HGB Conc 35 % (32-34); Monocytes # (Auto) 0.5 K/mm3 (0.0-0.8); Platelet Count 137 K/mm3 (140-440); Red Blood Count 2.47 M/mm3 (3.65-5.03); Red Cell Distribution Width 15.7 % (13.2-15.2)
[2020-03-20 09:10] LABS: Mean Corpuscular Volume 127 fl (84-94)
[2020-03-20 10:06] LABS: Alanine Aminotransferase 12 units/L (7-56); Albumin 3.2 g/dL (3.9-5); Blood Urea Nitrogen 5 mg/dL (9-20); Calcium 8.6 mg/dL (8.4-10.2); Hemolysis Index 8
[2020-03-20 10:07] LABS: BUN/Creatinine Ratio 7
[2020-03-21 06:06] LABS: Basophils % (Auto) 0.7 % (0.0-1.8); Eosinophils # (Auto) 0.1 K/mm3 (0.0-0.4); Eosinophils % (Auto) 2.3 % (0.0-4.3); Hematocrit 30.9 % (35.5-45.6); Hemoglobin 10.7 gm/dl (11.8-15.2); Lymphocytes # (Auto) 1.3 K/mm3 (1.2-5.4); Lymphocytes % (Auto) 30.3 % (13.4-35.0); Mean Corpuscular HGB Conc 35 % (32-34); Monocytes # (Auto) 0.5 K/mm3 (0.0-0.8); Monocytes % (Auto) 11.9 % (0.0-7.3); Platelet Count 150 K/mm3 (140-440); Red Blood Count 2.43 M/mm3 (3.65-5.03); Red Cell Distribution Width 15.4 % (13.2-15.2)
[2020-03-21 06:07] LABS: Mean Corpuscular Volume 127 fl (84-94)
[2020-03-21 06:22] LABS: Alanine Aminotransferase 12 units/L (7-56); Albumin 3.2 g/dL (3.9-5); BUN/Creatinine Ratio 8; Blood Urea Nitrogen 6 mg/dL (9-20); Calcium 8.8 mg/dL (8.4-10.2); Hemolysis Index 7
--- NOTE | 2020-03-21 11:37 | Discharge Summary ---
Providers - Providers Date of Admission: 03/17/20 15:28 Date of discharge: 03/21/20 Attending physician: LILLIE CHAUDHRY 03/20/20 10:24 Physical Therapy Evaluation and Treat [CONS] Routine Comment: Reason For Exam: generalized weakness Primary care physician: EXPERIMENTAL WELDER Hospitalization Condition: Fair Hospital course: 59 YO Male with ETOH Dependence, HTN, Nicotine Dependence, Cerebral Atherosclerosis, Recurrent Falls presents to ED for evaluation. Patient states that he felt weak while walking to the liquor store and subsequently fell. Pt states that he has experienced tremors, agitation, insomnia, nausea, irritability, anxiety, headaches, confusion, diaphoresis, and loss of appetite over the past 1 day. Pt states that his last drink was 1 day ago. Patient acknowledges drinking approximately 18 beers per day but ran out of beer on yesterday. EMS was notified and upon arrival the patient was found to be in di stress and subsequently transported to [facility] for further care and evaluation of the aforementioned symptoms. Pt seen and evaluated in ED. all lab and imaging studies reviewed. The patient was found to have ETOH Withdrawl as well as symptoms consistent with delirium tremens. Pt admitted to medical floor due to increased risk of worsening symptoms. Pt denies fever, chills, CP, Palpitations, Trauma, BRBPR, Skin Rash, Leg swelling, calf pain, productive cough, or recent ill contacts, or known exposure to COVID-19. Prior admission on 11/14/17 reviewed. All medication listed at time of admission has been reconciled. Advanced care planning conducted in ED. 03/18. Has no complaints. On CIWA protocol. Has low K and low Magnesium. Continue replacement. 03/19. He is improving. He uses a walking stick to ambulate and is homeless. 03/20. He will need to Dc but needs a long term. CM informed. He is improving 03/21. No complaints today. Has been advised to stop alcohol use. He will be discharged today. His potassium will be repleted prior to discharge Addendum Patient had COVID test performed for placement. Result came out positive but he had already left the hospital with a friend. I called Екатерина (ex ) and told her to have Yon call back the hospital so he can be told about a test result. She states she will tell him to call. Patient is asymptomatic however. Disposition: DC-01 TO HOME OR SELFCARE - Discharge Diagnoses (1) Alcohol withdrawal Status: Acute Qualifiers: Complication of substance-induced condition: with perceptual disturbance Qualified Code(s): F10.232 - Alcohol dependence with withdrawal with perceptual disturbance (2) HTN (hypertension) Status: Acute Qualifiers: Hypertension type: essential hypertension Qualified Code(s): I10 - Essential (primary) hypertension Core Measure Documentation - Palliative Care Palliative Care/ Comfort Measures: Not Applicable - Core Measures Any of the following diagnoses?: none Exam - Constitutional Vitals: Temp Pulse Resp BP Pulse Ox 98.6 F 68 18 170/98 100 03/21/20 07:54 03/21/20 07:54 03/21/20 07:54 03/21/20 07:54 03/21/20 07:54 General appearance: Present: no acute distress, well-nourished - EENT Eyes: Present: PERRL ENT: hearing intact, clear oral mucosa - Neck Neck: Present: supple, normal ROM - Respiratory Respiratory effort: normal Respiratory: bilateral: CTA - Cardiovascular Heart Sounds: Present: S1 & S2. Absent: rub, click - Extremities Extremities: pulses symmetrical, No edema Peripheral Pulses: within normal limits - Abdominal General gastrointestinal: Present: soft, non-tender, non-distended, normal bowel sounds Male genitourinary: Present: normal - Integumentary Integumentary: Present: clear, warm, dry - Musculoskeletal Musculoskeletal: gait normal, strength equal bilaterally - Psychiatric Psychiatric: appropriate mood/affect, intact judgment & insight - Neurologic Neurologic: CNII-XII intact, moves all extremities Plan Durable Medical Equipment Needed Upon Discharge: Cane Additional Instructions: Continue amlodipine 10 mg daily. Stop alcohol abuse. Follow up with a primary medical doctor Follow up with: PRIMARY CAREMD [Primary Care Provider] - 3-5 Days Prescriptions: amLODIPine 10 mg PO DAILY #30 tab
[2020-03-21] MEDS: POTASSIUM CHLORIDE ER 20 MEQ TAB PO SCH (16:34)
[2020-03-22] MEDS: SODIUM CHLORIDE 0.9% 1000 ML 1,000 ML IV SCH (01:23)
[2020-03-22 09:00] VITALS: BP 154/91
[2020-03-22 10:17] LABS: Basophils % (Auto) 0.7 % (0.0-1.8); Eosinophils # (Auto) 0.1 K/mm3 (0.0-0.4); Eosinophils % (Auto) 2.8 % (0.0-4.3); Hematocrit 32.1 % (35.5-45.6); Hemoglobin 10.9 gm/dl (11.8-15.2); Lymphocytes # (Auto) 1.3 K/mm3 (1.2-5.4); Lymphocytes % (Auto) 28.2 % (13.4-35.0); Mean Corpuscular HGB Conc 34 % (32-34); Monocytes # (Auto) 0.5 K/mm3 (0.0-0.8); Monocytes % (Auto) 11.6 % (0.0-7.3); Platelet Count 182 K/mm3 (140-440); Red Blood Count 2.53 M/mm3 (3.65-5.03); Red Cell Distribution Width 15.6 % (13.2-15.2)
[2020-03-22 10:23] LABS: Mean Corpuscular Volume 127 fl (84-94)
[2020-03-22 10:38] LABS: Alanine Aminotransferase 10 units/L (7-56); Albumin 3.3 g/dL (3.9-5); BUN/Creatinine Ratio 9; Blood Urea Nitrogen 6 mg/dL (9-20); Calcium 8.9 mg/dL (8.4-10.2); Hemolysis Index 5
[2020-03-22] MEDS: POTASSIUM CHLORIDE ER 20 MEQ TAB PO SCH (11:18)
--- NOTE | 2020-03-22 11:47 | Progress Note ---
Assessment and Plan Assessment and plan: 59 YO Male with ETOH Dependence, HTN, Nicotine Dependence, Cerebral Atherosclerosis, Recurrent Falls presents to ED for evaluation. Patient states that he felt weak while walking to the liquor store and subsequently fell. Pt states that he has experienced tremors, agitation, insomnia, nausea, irritabi lity, anxiety, headaches, confusion, diaphoresis, and loss of appetite over the past 1 day. Pt states that his last drink was 1 day ago. Patient acknowledges drinking approximately 18 beers per day but ran out of beer on yesterday. EMS was notified and upon arrival the patient was found to be in distress and subsequently transported to [facility] for further care and evaluation of the aforementioned symptoms. Pt seen and evaluated in ED. all lab and imaging studies reviewed. The patient was found to have ETOH Withdrawl as well as symptoms consistent with delirium tremens. Pt admitted to medical floor due to increased risk of worsening symptoms. Pt denies fever, chills, CP, Palpitations, Trauma, BRBPR, Skin Rash, Leg swelling, calf pain, productive cough, or recent ill contacts, or known exposure to COVID-19. Prior admission on 11/14/17 reviewed. All medication listed at time of admission has been reconciled. Advanced care planning conducted in ED. 03/18. Has no complaints. On CIWA protocol. Has low K and low Magnesium. Continue replacement. 03/19. He is improving. He uses a walking stick to ambulate and is homeless. 03/20. He will need to Dc but needs a group home. CM informed. He is improving. His gait is unsteady. He will need PT. - Patient Problems (1) Alcohol withdrawal Current Visit: Yes Status: Acute Qualifiers: Complication of substance-induced condition: with perceptual disturbance Qualified Code(s): F10.232 - Alcohol dependence with withdrawal with perceptual disturbance Plan to address problem: Alcohol withdrawal protocol: Thiamine, folic acid, multivitamin, CIWA protocol, IV fluid resuscitation therapy (2) Nicotine dependence Current Visit: Yes Status: Acute Qualifiers: Nicotine product type: cigarettes Substance use status: in withdrawal Qualified Code(s): F17.213 - Nicotine dependence, cigarettes, with withdrawal Plan to address problem: Supportive care, smoking cessation counseling, behavior change counseling, +15 minutes (3) Alcohol dependence Current Visit: Yes Status: Acute Qualifiers: Complication of substance-induced condition: with perceptual disturbance Plan to address problem: Supportive care, outpatient follow-up with Alcoholics Anonymous at time of discharge, supportive care. Behavior change counseling, +15 minutes. (4) Electrolyte abnormalities Current Visit: Yes Status: Acute Plan to address problem: Replete PRN (5) DVT prophylaxis Current Visit: No Status: Acute Plan to address problem: SCD to bilateral lower extremities while in bed (6) Advance care planning Current Visit: Yes Status: Acute Plan to address problem: Disease education conducted, patient is full code, +30 minutes. - Patient Problems (1) Alcohol withdrawal Current Visit: Yes Status: Acute Qualifiers: Complication of substance-induced condition: with perceptual disturbance Qualified Code(s): F10.232 - Alcohol dependence with withdrawal with perceptual disturbance (2) HTN (hypertension) Current Visit: No Status: Acute Qualifiers: Hypertension type: essential hypertension Qualified Code(s): I10 - Essential (primary) hypertension History Interval history: Patient seen and examined at bedside. No complaints. On [facility] protocol. Hospitalist Physical - Constitutional Vitals: Temp Pulse Resp BP Pulse Ox 98.3 F 76 16 154/91 98 03/22/20 07:57 03/22/20 10:00 03/22/20 10:00 03/22/20 07:57 03/22/20 10:00 General appearance: Present: no acute distress, well-nourished - EENT Eyes: Present: PERRL - Respiratory Respiratory: bilateral: CTA - Cardiovascular Rhythm: regular Heart Sounds: Present: S1 & S2 - Abdominal General gastrointestinal: soft, non-tender, non-distended, normal bowel sounds - Psychiatric Psychiatric: appropriate mood/affect - Neurologic Neurologic: CNII-XII intact Results - Labs CBC & Chem 7: 03/22/20 08:16 03/22/20 08:16 Labs: Laboratory Last Values WBC 4.7 K/mm3 (4.5-11.0) 03/22/20 08:16 RBC 2.53 M/mm3 (3.65-5.03) L 03/22/20 08:16 Hgb 10.9 gm/dl (11.8-15.2) L 03/22/20 08:16 Hct 32.1 % (35.5-45.6) L 03/22/20 08:16 MCV 127 fl (84-94) H 03/22/20 08:16 MCH 43 pg (28-32) H 03/22/20 08:16 MCHC 34 % (32-34) 03/22/20 08:16 RDW 15.6 % (13.2-15.2) H 03/22/20 08:16 Plt Count 182 K/mm3 (140-440) 03/22/20 08:16 Lymph % (Auto) 28.2 % (13.4-35.0) 03/22/20 08:16 [place] % (Auto) 11.6 % (0.0-7.3) H 03/22/20 08:16 Eos % (Auto) 2.8 % (0.0-4.3) 03/22/20 08:16 Baso % (Auto) 0.7 % (0.0-1.8) 03/22/20 08:16 Lymph # (Auto) 1.3 K/mm3 (1.2-5.4) 03/22/20 08:16 [place] # (Auto) 0.5 K/mm3 (0.0-0.8) 03/22/20 08:16 Eos # (Auto) 0.1 K/mm3 (0.0-0.4) 03/22/20 08:16 Baso # (Auto) 0.0 K/mm3 (0.0-0.1) 03/22/20 08:16 Seg Neutrophils % 56.7 % (40.0-70.0) 03/22/20 08:16 Seg Neutrophils # 2.7 K/mm3 (1.8-7.7) 03/22/20 08:16 Sodium 139 mmol/L (137-145) 03/22/20 08:16 Potassium 3.3 mmol/L (3.6-5.0) L 03/22/20 08:16 Chloride 102.5 mmol/L (98-107) 03/22/20 08:16 Carbon Dioxide 27 mmol/L (22-30) 03/22/20 08:16 Anion Gap 13 mmol/L 03/22/20 08:16 BUN 6 mg/dL (9-20) L 03/22/20 08:16 Creatinine 0.7 mg/dL (0.8-1.3) L 03/22/20 08:16 Estimated GFR > 60 ml/min 03/22/20 08:16 BUN/Creatinine Ratio 9 % 03/22/20 08:16 Glucose 103 mg/dL (75-100) H 03/22/20 08:16 Calcium 8.9 mg/dL (8.4-10.2) 03/22/20 08:16 Phosphorus 3.90 mg/dL (2.5-4.5) 03/17/20 11:39 Magnesium 1.30 mg/dL (1.7-2.3) L 03/18/20 14:23 Total Bilirubin 0.20 mg/dL (0.1-1.2) 03/22/20 08:16 AST 25 units/L (5-40) 03/22/20 08:16 ALT 10 units/L (7-56) 03/22/20 08:16 Alkaline Phosphatase 56 units/L (35-129) 03/22/20 08:16 Ammonia 20.0 umol/L (25-60) L 03/17/20 11:45 Total Protein 6.2 g/dL (6.3-8.2) L 03/22/20 08:16 Albumin 3.3 g/dL (3.9-5) L 03/22/20 08:16 Albumin/Globulin Ratio 1.1 % 03/22/20 08:16 Plasma/Serum Alcohol 0.04 % (0-0.07) 03/17/20 11:39 Brown/IV: Voiding Method Urinal IV Catheter Type [Right INT / Saline Lock Forearm] IV Catheter Type [Right Hand] Peripheral IV Active Medications - Current Medications Current Medications: Generic Name Dose Route Start Last Admin Trade Name Freq PRN Reason Stop Dose Admin Acetaminophen 650 mg 03/17/20 15:28 03/21/20 16:34 Tylenol PO 650 mg Q4H PRN Administration Pain MILD(1-3)/Fever >100.5/JOY Albuterol 2.5 mg 03/17/20 15:28 Proventil IH Q4HRT PRN Shortness Of Breath Chlordiazepoxide HCl 50 mg 03/17/20 11:36 03/19/20 13:42 Librium PO 50 mg Q1H PRN Administration CIWA-Ar 8-15 Chlordiazepoxide HCl 100 mg 03/17/20 11:36 Librium PO Q1H PRN CIWA-Ar 16-25 Sodium Chloride 1,000 mls @ 100 mls/hr 03/17/20 15:30 03/22/20 01:23 Nacl 0.9% 1000 Ml IV 100 mls/hr DIRECT MARIFER Administration Lorazepam 2 mg 03/17/20 11:36 03/19/20 21:23 Ativan IV 2 mg Q1H PRN Administration CIWA-Ar 8-15 Lorazepam 4 mg 03/17/20 11:36 Ativan IV Q1H PRN CIWA-Ar 16-25 Lorazepam 4 mg 03/17/20 11:36 Ativan IV Q15MIN PRN CIWA-Ar >25 Ondansetron HCl 4 mg 03/17/20 15:28 Zofran IV Q8H PRN Nausea And Vomiting Potassium Chloride 40 meq 03/21/20 15:00 03/22/20 11:18 K-Dur PO 40 meq QDAY MARIFER Administration Sodium Chloride 10 ml 03/17/20 22:00 03/22/20 11:18 Sodium Chloride Flush Syringe 10 Ml IV 10 ml BID MARIFER Administration Sodium Chloride 10 ml 03/17/20 15:28 Sodium Chloride Flush Syringe 10 Ml IV PRN PRN LINE FLUSH
--- NOTE | 2020-03-22 11:50 | Progress Note ---
Assessment and Plan Assessment and plan: 59 YO Male with ETOH Dependence, HTN, Nicotine Dependence, Cerebral Atherosclerosis, Recurrent Falls presents to ED for evaluation. Patient states that he felt weak while walking to the liquor store and subsequently fell. Pt states that he has experienced tremors, agitation, insomnia, nausea, irritabi lity, anxiety, headaches, confusion, diaphoresis, and loss of appetite over the past 1 day. Pt states that his last drink was 1 day ago. Patient acknowledges drinking approximately 18 beers per day but ran out of beer on yesterday. EMS was notified and upon arrival the patient was found to be in distress and subsequently transported to [facility] for further care and evaluation of the aforementioned symptoms. Pt seen and evaluated in ED. all lab and imaging studies reviewed. The patient was found to have ETOH Withdrawl as well as symptoms consistent with delirium tremens. Pt admitted to medical floor due to increased risk of worsening symptoms. Pt denies fever, chills, CP, Palpitations, Trauma, BRBPR, Skin Rash, Leg swelling, calf pain, productive cough, or recent ill contacts, or known exposure to COVID-19. Prior admission on 11/14/17 reviewed. All medication listed at time of admission has been reconciled. Advanced care planning conducted in ED. 03/18. Has no complaints. On CIWA protocol. Has low K and low Magnesium. Continue replacement. 03/19. He is improving. He uses a walking stick to ambulate and is homeless. 03/20. He will need to Dc but needs a halfway. CM informed. He is improving. His gait is unsteady. He will need PT. 03/21. Needs a halfway and is not ambulating well. He uses a cane to ambulate. - Patient Problems (1) Alcohol withdrawal Current Visit: Yes Status: Acute Qualifiers: Complication of substance-induced condition: with perceptual disturbance Qualified Code(s): F10.232 - Alcohol dependence with withdrawal with perceptual disturbance Plan to address problem: Alcohol withdrawal protocol: Thiamine, folic acid, multivitamin, CIWA protocol, IV fluid resuscitation therapy (2) Nicotine dependence Current Visit: Yes Status: Acute Qualifiers: Nicotine product type: cigarettes Substance use status: in withdrawal Qualified Code(s): F17.213 - Nicotine dependence, cigarettes, with withdrawal Plan to address problem: Supportive care, smoking cessation counseling, behavior change counseling, +15 minutes (3) Alcohol dependence Current Visit: Yes Status: Acute Qualifiers: Complication of substance-induced condition: with perceptual disturbance Plan to address problem: Supportive care, outpatient follow-up with Alcoholics Anonymous at time of discharge, supportive care. Behavior change counseling, +15 minutes. (4) Electrolyte abnormalities Current Visit: Yes Status: Acute Plan to address problem: Replete PRN (5) DVT prophylaxis Current Visit: No Status: Acute Plan to address problem: SCD to bilateral lower extremities while in bed (6) Advance care planning Current Visit: Yes Status: Acute Plan to address problem: Disease education conducted, patient is full code, +30 minutes. History Interval history: Patient seen and examined at bedside. No complaints. On [facility] protocol. Awaiting placement to halfway. He will continue PT while here Hospitalist Physical - Constitutional Vitals: Temp Pulse Resp BP Pulse Ox 98.3 F 76 16 154/91 98 03/22/20 07:57 03/22/20 10:00 03/22/20 10:00 03/22/20 07:57 03/22/20 10:00 General appearance: Present: no acute distress, well-nourished - EENT Eyes: Present: PERRL - Neck Neck: Present: supple - Respiratory Respiratory: bilateral: CTA - Cardiovascular Rhythm: regular Heart Sounds: Present: S1 & S2 - Extremities Extremities: no ischemia, No edema - Abdominal General gastrointestinal: soft, non-tender, non-distended, normal bowel sounds - Psychiatric Psychiatric: appropriate mood/affect - Neurologic Neurologic: CNII-XII intact Results - Labs CBC & Chem 7: 03/22/20 08:16 03/22/20 08:16 Labs: Laboratory Last Values WBC 4.7 K/mm3 (4.5-11.0) 03/22/20 08:16 RBC 2.53 M/mm3 (3.65-5.03) L 03/22/20 08:16 Hgb 10.9 gm/dl (11.8-15.2) L 03/22/20 08:16 Hct 32.1 % (35.5-45.6) L 03/22/20 08:16 MCV 127 fl (84-94) H 03/22/20 08:16 MCH 43 pg (28-32) H 03/22/20 08:16 MCHC 34 % (32-34) 03/22/20 08:16 RDW 15.6 % (13.2-15.2) H 03/22/20 08:16 Plt Count 182 K/mm3 (140-440) 03/22/20 08:16 Lymph % (Auto) 28.2 % (13.4-35.0) 03/22/20 08:16 [place] % (Auto) 11.6 % (0.0-7.3) H 03/22/20 08:16 Eos % (Auto) 2.8 % (0.0-4.3) 03/22/20 08:16 Baso % (Auto) 0.7 % (0.0-1.8) 03/22/20 08:16 Lymph # (Auto) 1.3 K/mm3 (1.2-5.4) 03/22/20 08:16 [place] # (Auto) 0.5 K/mm3 (0.0-0.8) 03/22/20 08:16 Eos # (Auto) 0.1 K/mm3 (0.0-0.4) 03/22/20 08:16 Baso # (Auto) 0.0 K/mm3 (0.0-0.1) 03/22/20 08:16 Seg Neutrophils % 56.7 % (40.0-70.0) 03/22/20 08:16 Seg Neutrophils # 2.7 K/mm3 (1.8-7.7) 03/22/20 08:16 Sodium 139 mmol/L (137-145) 03/22/20 08:16 Potassium 3.3 mmol/L (3.6-5.0) L 03/22/20 08:16 Chloride 102.5 mmol/L (98-107) 03/22/20 08:16 Carbon Dioxide 27 mmol/L (22-30) 03/22/20 08:16 Anion Gap 13 mmol/L 03/22/20 08:16 BUN 6 mg/dL (9-20) L 03/22/20 08:16 Creatinine 0.7 mg/dL (0.8-1.3) L 03/22/20 08:16 Estimated GFR > 60 ml/min 03/22/20 08:16 BUN/Creatinine Ratio 9 % 03/22/20 08:16 Glucose 103 mg/dL (75-100) H 03/22/20 08:16 Calcium 8.9 mg/dL (8.4-10.2) 03/22/20 08:16 Phosphorus 3.90 mg/dL (2.5-4.5) 03/17/20 11:39 Magnesium 1.30 mg/dL (1.7-2.3) L 03/18/20 14:23 Total Bilirubin 0.20 mg/dL (0.1-1.2) 03/22/20 08:16 AST 25 units/L (5-40) 03/22/20 08:16 ALT 10 units/L (7-56) 03/22/20 08:16 Alkaline Phosphatase 56 units/L (35-129) 03/22/20 08:16 Ammonia 20.0 umol/L (25-60) L 03/17/20 11:45 Total Protein 6.2 g/dL (6.3-8.2) L 03/22/20 08:16 Albumin 3.3 g/dL (3.9-5) L 03/22/20 08:16 Albumin/Globulin Ratio 1.1 % 03/22/20 08:16 Plasma/Serum Alcohol 0.04 % (0-0.07) 03/17/20 11:39 Brown/IV: Voiding Method Urinal IV Catheter Type [Right INT / Saline Lock Forearm] IV Catheter Type [Right Hand] Peripheral IV Active Medications - Current Medications Current Medications: Generic Name Dose Route Start Last Admin Trade Name Freq PRN Reason Stop Dose Admin Acetaminophen 650 mg 03/17/20 15:28 03/21/20 16:34 Tylenol PO 650 mg Q4H PRN Administration Pain MILD(1-3)/Fever >100.5/JOY Albuterol 2.5 mg 03/17/20 15:28 Proventil IH Q4HRT PRN Shortness Of Breath Chlordiazepoxide HCl 50 mg 03/17/20 11:36 03/19/20 13:42 Librium PO 50 mg Q1H PRN Administration CIWA-Ar 8-15 Chlordiazepoxide HCl 100 mg 03/17/20 11:36 Librium PO Q1H PRN CIWA-Ar 16-25 Sodium Chloride 1,000 mls @ 100 mls/hr 03/17/20 15:30 03/22/20 01:23 Nacl 0.9% 1000 Ml IV 100 mls/hr DIRECT MARIFER Administration Lorazepam 2 mg 03/17/20 11:36 03/19/20 21:23 Ativan IV 2 mg Q1H PRN Administration CIWA-Ar 8-15 Lorazepam 4 mg 03/17/20 11:36 Ativan IV Q1H PRN CIWA-Ar 16-25 Lorazepam 4 mg 03/17/20 11:36 Ativan IV Q15MIN PRN CIWA-Ar >25 Ondansetron HCl 4 mg 03/17/20 15:28 Zofran IV Q8H PRN Nausea And Vomiting Potassium Chloride 40 meq 03/21/20 15:00 03/22/20 11:18 K-Dur PO 40 meq QDAY MARIFER Administration Sodium Chloride 10 ml 03/17/20 22:00 03/22/20 11:18 Sodium Chloride Flush Syringe 10 Ml IV 10 ml BID MARIFER Administration Sodium Chloride 10 ml 03/17/20 15:28 Sodium Chloride Flush Syringe 10 Ml IV PRN PRN LINE FLUSH
--- NOTE | 2020-03-22 11:51 | Progress Note ---
Assessment and Plan Assessment and plan: 59 YO Male with ETOH Dependence, HTN, Nicotine Dependence, Cerebral Atherosclerosis, Recurrent Falls presents to ED for evaluation. Patient states that he felt weak while walking to the liquor store and subsequently fell. Pt states that he has experienced tremors, agitation, insomnia, nausea, irritabi lity, anxiety, headaches, confusion, diaphoresis, and loss of appetite over the past 1 day. Pt states that his last drink was 1 day ago. Patient acknowledges drinking approximately 18 beers per day but ran out of beer on yesterday. EMS was notified and upon arrival the patient was found to be in distress and subsequently transported to [facility] for further care and evaluation of the aforementioned symptoms. Pt seen and evaluated in ED. all lab and imaging studies reviewed. The patient was found to have ETOH Withdrawl as well as symptoms consistent with delirium tremens. Pt admitted to medical floor due to increased risk of worsening symptoms. Pt denies fever, chills, CP, Palpitations, Trauma, BRBPR, Skin Rash, Leg swelling, calf pain, productive cough, or recent ill contacts, or known exposure to COVID-19. Prior admission on 11/14/17 reviewed. All medication listed at time of admission has been reconciled. Advanced care planning conducted in ED. 03/18. Has no complaints. On CIWA protocol. Has low K and low Magnesium. Continue replacement. 03/19. He is improving. He uses a walking stick to ambulate and is homeless. 03/20. He will need to Dc but needs a longterm. CM informed. He is improving. His gait is unsteady. He will need PT. 03/21. Needs a longterm and is not ambulating well. He uses a cane to ambulate. - Patient Problems (1) Alcohol withdrawal Current Visit: Yes Status: Acute Qualifiers: Complication of substance-induced condition: with perceptual disturbance Qualified Code(s): F10.232 - Alcohol dependence with withdrawal with perceptual disturbance Plan to address problem: Alcohol withdrawal protocol: Thiamine, folic acid, multivitamin, CIWA protocol, IV fluid resuscitation therapy (2) Nicotine dependence Current Visit: Yes Status: Acute Qualifiers: Nicotine product type: cigarettes Substance use status: in withdrawal Qualified Code(s): F17.213 - Nicotine dependence, cigarettes, with withdrawal Plan to address problem: Supportive care, smoking cessation counseling, behavior change counseling, +15 minutes (3) Alcohol dependence Current Visit: Yes Status: Acute Qualifiers: Complication of substance-induced condition: with perceptual disturbance Plan to address problem: Supportive care, outpatient follow-up with Alcoholics Anonymous at time of discharge, supportive care. Behavior change counseling, +15 minutes. (4) Electrolyte abnormalities Current Visit: Yes Status: Acute Plan to address problem: Replete PRN (5) DVT prophylaxis Current Visit: No Status: Acute Plan to address problem: SCD to bilateral lower extremities while in bed (6) Advance care planning Current Visit: Yes Status: Acute Plan to address problem: Disease education conducted, patient is full code, +30 minutes. - Patient Problems (1) Alcohol withdrawal Current Visit: Yes Status: Acute Qualifiers: Complication of substance-induced condition: with perceptual disturbance Qualified Code(s): F10.232 - Alcohol dependence with withdrawal with perceptual disturbance (2) HTN (hypertension) Current Visit: No Status: Acute Qualifiers: Hypertension type: essential hypertension Qualified Code(s): I10 - Essential (primary) hypertension History Interval history: Patient seen and examined at bedside. No complaints. On [facility] protocol. Awaiting placement to longterm. He will continue PT while here Hospitalist Physical - Constitutional Vitals: Temp Pulse Resp BP Pulse Ox 98.3 F 76 16 154/91 98 03/22/20 07:57 03/22/20 10:00 03/22/20 10:00 03/22/20 07:57 03/22/20 10:00 General appearance: Present: no acute distress, well-nourished - EENT Eyes: Present: PERRL - Respiratory Respiratory: bilateral: CTA - Cardiovascular Heart Sounds: Present: S1 & S2 - Extremities Extremities: No edema - Abdominal General gastrointestinal: soft, non-tender, non-distended, normal bowel sounds - Psychiatric Psychiatric: appropriate mood/affect - Neurologic Neurologic: CNII-XII intact Results - Labs CBC & Chem 7: 03/22/20 08:16 03/22/20 08:16 Labs: Laboratory Last Values WBC 4.7 K/mm3 (4.5-11.0) 03/22/20 08:16 RBC 2.53 M/mm3 (3.65-5.03) L 03/22/20 08:16 Hgb 10.9 gm/dl (11.8-15.2) L 03/22/20 08:16 Hct 32.1 % (35.5-45.6) L 03/22/20 08:16 MCV 127 fl (84-94) H 03/22/20 08:16 MCH 43 pg (28-32) H 03/22/20 08:16 MCHC 34 % (32-34) 03/22/20 08:16 RDW 15.6 % (13.2-15.2) H 03/22/20 08:16 Plt Count 182 K/mm3 (140-440) 03/22/20 08:16 Lymph % (Auto) 28.2 % (13.4-35.0) 03/22/20 08:16 [place] % (Auto) 11.6 % (0.0-7.3) H 03/22/20 08:16 Eos % (Auto) 2.8 % (0.0-4.3) 03/22/20 08:16 Baso % (Auto) 0.7 % (0.0-1.8) 03/22/20 08:16 Lymph # (Auto) 1.3 K/mm3 (1.2-5.4) 03/22/20 08:16 [place] # (Auto) 0.5 K/mm3 (0.0-0.8) 03/22/20 08:16 Eos # (Auto) 0.1 K/mm3 (0.0-0.4) 03/22/20 08:16 Baso # (Auto) 0.0 K/mm3 (0.0-0.1) 03/22/20 08:16 Seg Neutrophils % 56.7 % (40.0-70.0) 03/22/20 08:16 Seg Neutrophils # 2.7 K/mm3 (1.8-7.7) 03/22/20 08:16 Sodium 139 mmol/L (137-145) 03/22/20 08:16 Potassium 3.3 mmol/L (3.6-5.0) L 03/22/20 08:16 Chloride 102.5 mmol/L (98-107) 03/22/20 08:16 Carbon Dioxide 27 mmol/L (22-30) 03/22/20 08:16 Anion Gap 13 mmol/L 03/22/20 08:16 BUN 6 mg/dL (9-20) L 03/22/20 08:16 Creatinine 0.7 mg/dL (0.8-1.3) L 03/22/20 08:16 Estimated GFR > 60 ml/min 03/22/20 08:16 BUN/Creatinine Ratio 9 % 03/22/20 08:16 Glucose 103 mg/dL (75-100) H 03/22/20 08:16 Calcium 8.9 mg/dL (8.4-10.2) 03/22/20 08:16 Phosphorus 3.90 mg/dL (2.5-4.5) 03/17/20 11:39 Magnesium 1.30 mg/dL (1.7-2.3) L 03/18/20 14:23 Total Bilirubin 0.20 mg/dL (0.1-1.2) 03/22/20 08:16 AST 25 units/L (5-40) 03/22/20 08:16 ALT 10 units/L (7-56) 03/22/20 08:16 Alkaline Phosphatase 56 units/L (35-129) 03/22/20 08:16 Ammonia 20.0 umol/L (25-60) L 03/17/20 11:45 Total Protein 6.2 g/dL (6.3-8.2) L 03/22/20 08:16 Albumin 3.3 g/dL (3.9-5) L 03/22/20 08:16 Albumin/Globulin Ratio 1.1 % 03/22/20 08:16 Plasma/Serum Alcohol 0.04 % (0-0.07) 03/17/20 11:39 Brown/IV: Voiding Method Urinal IV Catheter Type [Right INT / Saline Lock Forearm] IV Catheter Type [Right Hand] Peripheral IV Active Medications - Current Medications Current Medications: Generic Name Dose Route Start Last Admin Trade Name Freq PRN Reason Stop Dose Admin Acetaminophen 650 mg 03/17/20 15:28 03/21/20 16:34 Tylenol PO 650 mg Q4H PRN Administration Pain MILD(1-3)/Fever >100.5/JOY Albuterol 2.5 mg 03/17/20 15:28 Proventil IH Q4HRT PRN Shortness Of Breath Chlordiazepoxide HCl 50 mg 03/17/20 11:36 03/19/20 13:42 Librium PO 50 mg Q1H PRN Administration CIWA-Ar 8-15 Chlordiazepoxide HCl 100 mg 03/17/20 11:36 Librium PO Q1H PRN CIWA-Ar 16-25 Sodium Chloride 1,000 mls @ 100 mls/hr 03/17/20 15:30 03/22/20 01:23 Nacl 0.9% 1000 Ml IV 100 mls/hr DIRECT MARIFER Administration Lorazepam 2 mg 03/17/20 11:36 03/19/20 21:23 Ativan IV 2 mg Q1H PRN Administration CIWA-Ar 8-15 Lorazepam 4 mg 03/17/20 11:36 Ativan IV Q1H PRN CIWA-Ar 16-25 Lorazepam 4 mg 03/17/20 11:36 Ativan IV Q15MIN PRN CIWA-Ar >25 Ondansetron HCl 4 mg 03/17/20 15:28 Zofran IV Q8H PRN Nausea And Vomiting Potassium Chloride 40 meq 03/21/20 15:00 03/22/20 11:18 K-Dur PO 40 meq QDAY MARIFER Administration Sodium Chloride 10 ml 03/17/20 22:00 03/22/20 11:18 Sodium Chloride Flush Syringe 10 Ml IV 10 ml BID MARIFER Administration Sodium Chloride 10 ml 03/17/20 15:28 Sodium Chloride Flush Syringe 10 Ml IV PRN PRN LINE FLUSH
== END 2020-03-22 12:15 | disposition home or self-care (01) | DRG 896 ==
LOC: ED 10:00 → 4A 15:28
PROVIDERS: ADMIT Internal Medicine; ATTEND Internal Medicine
DX: F10.231 Alcohol dependence with withdrawal delirium (principal); U07.1 COVID-19; N17.9 Acute kidney failure, unspecified; F10.232 Alcohol dependence with withdrawal with perceptual disturbance; I10 Essential (primary) hypertension; D64.9 Anemia, unspecified; Z82.49 Family history of ischemic heart disease and other diseases of the circulatory system; F17.213 Nicotine dependence, cigarettes, with withdrawal; Z71.89 Other specified counseling; E87.8 Other disorders of electrolyte and fluid balance, not elsewhere classified
CPT/HCPCS: 36415; 70450; 72170; 80048; 80053; 80320; 82140; 83735; 84100; 85025; 96361; 96365; 96366; 96367; 96375; G0378; G0480; J2060; J3411; J3475; J3480; J7030; U0003

== ENCOUNTER 2021-05-31 13:40 | Emergency (ER) | payer MEDICARE ==
--- NOTE | 2021-05-31 14:02 | Emergency Department Report ---
ED Fall HPI - General Chief Complaint: Fall Stated Complaint: fall Time Seen by Provider: 05/31/21 13:54 Source: patient, EMS Mode of arrival: Stretcher - History of Present Illness Initial Comments: Patient is 61 years old male with history of hypertension, chronic alcohol abuse with frequent fall and fracture to his pelvic before. Patient also had history of anemia that required blood transfusion before. Patient brought to the emergency room via EMS from a local gas station after patient tripped and fell. Patient brought in a c-collar. Patient stated that is complaining of neck pain and mild headache. He denies any other injuries. Patient denied any chest pain, shortness of breath, focal weakness numbness or tingling sensation. MD Complaint: fall -: Sudden, This afternoon Fall From: standing Fall Witnessed: yes, by bystander Place Fall Occurred: other Loss of Consciousness: none Prolonged Down Time?: no Symptoms Prior to Fall: none Location: head, neck Severity: moderate Context: tripped/slipped Associated Symptoms: headache, neck pain - Related Data Previous Rx's Medication Instructions Recorded Last Taken Type Thiamine [Vitamin B-1] 100 mg PO QDAY #30 tablet 11/17/17 Unknown Rx amLODIPine 10 mg PO DAILY #30 tab 03/21/20 Unknown Rx Allergies Allergy/AdvReac Type Severity Reaction Status Date / Time No Known Allergies Allergy Unverified 11/13/17 16:00 ED Review of Systems ROS: Stated complaint: fall Other details as noted in HPI Comment: All other systems reviewed and negative Respiratory: denies: cough, shortness of breath, SOB with exertion Cardiovascular: denies: chest pain, palpitations Gastrointestinal: denies: abdominal pain, nausea, vomiting, diarrhea, constipation, hematemesis Musculoskeletal: denies: back pain Neurological: denies: headache, weakness, numbness, paresthesias, confusion ED Past Medical Hx - Past Medical History Previous Medical History?: Yes Hx Hypertension: Yes Hx Renal Disease: Yes (ARF) Hx Seizures: Yes (alcohol withdrawal) Hx Psychiatric Treatment: Yes (alcohol abuse) Additional medical history: GI bleed,frequent falls r/t intoxication with multiple FX'S, ANEMIA WITH BLOOD TRANSFUSIONS - Surgical History Additional Surgical History: unk, MULTIPLE FXS - Social History Smoking Status: Current Every Day Smoker - Medications Home Medications: Home Medications Medication Instructions Recorded Confirmed Last Taken Type Thiamine [Vitamin B-1] 100 mg PO QDAY #30 tablet 11/17/17 03/18/20 Unknown Rx amLODIPine 10 mg PO DAILY #30 tab 03/21/20 Unknown Rx ED Physical Exam - General Limitations: No Limitations General appearance: alert, appears intoxicated - Head Head exam: Present: atraumatic, normocephalic, normal inspection - Eye Eye exam: Present: normal appearance, PERRL - ENT ENT exam: Present: normal exam, normal orophraynx, mucous membranes moist - Neck Neck exam: Present: normal inspection, full ROM. Absent: tenderness, meningismus - Respiratory Respiratory exam: Present: normal lung sounds bilaterally - Cardiovascular Cardiovascular Exam: Present: regular rate, normal rhythm, normal heart sounds - GI/Abdominal GI/Abdominal exam: Present: soft, normal bowel sounds. Absent: distended, tenderness, guarding, rebound, rigid, organomegaly, mass, bruit, pulsatile mass, hernia - Extremities Exam Extremities exam: Present: pedal edema - Back Exam Back exam: Present: normal inspection, full ROM. Absent: CVA tenderness (R), CVA tenderness (L) - Neurological Exam Neurological exam: Present: alert, oriented X3, CN II-XII intact - Psychiatric Psychiatric exam: Present: normal mood - Skin Skin exam: Present: warm, intact, normal color ED Course Vital Signs 05/31/21 06/01/21 06/01/21 13:41 04:30 06:30 Temperature 97.9 F Pulse Rate 83 80 76 Respiratory 16 17 16 Rate Blood Pressure 190/99 152/87 155/85 [Left] O2 Sat by Pulse 98 97 96 Oximetry 06/01/21 09:52 Temperature Pulse Rate 86 Respiratory 16 Rate Blood Pressure 168/74 [Left] O2 Sat by Pulse 99 Oximetry ED Medical Decision Making - Lab Data Result diagrams: 05/31/21 14:46 05/31/21 14:46 - Radiology Data Radiology results: report reviewed - Medical Decision Making Patient is 61 years old male with history of hypertension, chronic alcohol abuse with frequent fall and fracture to his pelvic before. Patient also had history of anemia that required blood transfusion before. Patient brought to the emergency room via EMS from a local gas station after patient tripped and fell. Patient brought in a c-collar. Patient stated that is complaining of neck pain and mild headache. He denies any other injuries. Patient denied any chest pain, shortness of breath, focal weakness numbness or tingling sensation. Patient remained stable in the ER with stable vital sign. CT brain and CT cervical spine is negative for acute finding. Labs reviewed and showed blood alcohol level of 0.36. Patient will be observed in the ER until sober. Critical care attestation.: If time is entered above; I have spent that time in minutes in the direct care of this critically ill patient, excluding procedure time. ED Disposition Clinical Impression: Fall Qualifiers: Encounter type: initial encounter Qualified Code(s): W19.XXXA - Unspecified fall, initial encounter Alcohol intoxication Qualifiers: Complication of substance-induced condition: with unspecified complication Qualified Code(s): F10.929 - Alcohol use, unspecified with intoxication, unspecified Neck injury Qualifiers: Encounter type: initial encounter Qualified Code(s): S19.9XXA - Unspecified injury of neck, initial encounter Disposition: 01 HOME / SELF CARE / HOMELESS Is pt being admited?: No Condition: Stable Instructions: Binge-Drinking Information, Adult, Cervical Sprain Additional Instructions: Seek medical help to stop drinking. Return for problems. Apply ice to sore areas. Follow-up with your regular doctor for recheck. If you do not have a regular doctor, follow-up with the referral physician. Referrals: BARBRA CARPENTER MD [Staff Physician] - 3-5 Days PRIMARY CAREMD [Primary Care Provider] - 3-5 Days
--- NOTE | 2021-05-31 15:23 | Cat Scan Report ---
CT BRAIN: 05/31/2021 INDICATION / CLINICAL INFORMATION: Fall. COMPARISON: CT brain 03/17/2020 FINDINGS: BRAIN/INTRACRANIAL STRUCTURES: Unenhanced CT images of the brain demonstrate no evidence of acute abn ormality. Ventricles and sulci are prominent in size, consistent with prominent diffuse cerebral atrophy for ag e. There is no evidence of hemorrhage or mass. There are no abnormal extra-axial fluid collections. EXTRACRANIAL STRUCTURES: Unremarkable. IMPRESSION: No acute abnormality. Prominent diffuse cerebral atrophy for age. No significant change when compared to 03/17/[address] scans at this location are performed using dose reduction to ALARA by means of automated expos ure control. Signer Name: Florin Schuster MD Signed: 05/31/2021 3:19 PM Workstation Name: [id number]
[2021-05-31 15:26] LABS: Basophils # (Auto) 0.1 K/mm3 (0.0-0.1); Basophils % (Auto) 1.8 % (0.0-1.8); Eosinophils # (Auto) 0.1 K/mm3 (0.0-0.4); Eosinophils % (Auto) 1.8 % (0.0-4.3); Hematocrit 38.8 % (35.5-45.6); Hemoglobin 12.7 gm/dl (11.8-15.2); Lymphocytes # (Auto) 2.1 K/mm3 (1.2-5.4); Lymphocytes % (Auto) 54.9 % (13.4-35.0); Mean Corpuscular HGB Conc 33 % (32-34); Mean Corpuscular Volume 118 fl (84-94); Monocytes # (Auto) 0.2 K/mm3 (0.0-0.8); Monocytes % (Auto) 6.2 % (0.0-7.3); Platelet Count 151 K/mm3 (140-440); Red Blood Count 3.28 M/mm3 (3.65-5.03); Red Cell Distribution Width 15.9 % (13.2-15.2)
--- NOTE | 2021-05-31 15:27 | Cat Scan Report ---
CT CERVICAL SPINE: 05/31/2021 INDICATION / CLINICAL INFORMATION: Fall. Trauma COMPARISON: None available. FINDINGS: CT images of the cervical spine were obtained. Images are evaluated in the axial, coronal, and sagitt al planes. There is no evidence of acute abnormality. Vertebral body height is well preserved at all levels. Some degenerative disc and facet changes are present in the mid and lower cervical spine. Osseous can al diameter is well preserved. There is some right-sided osseous foraminal narrowing present at the C6-7 and C7-T1 levels. Degenerat jasmina anterolisthesis is present at C7-T1. CRANIOCERVICAL JUNCTION: Unremarkable. PARASPINAL STRUCTURES: Unremarkable IMPRESSION: No acute abnormality. All CT scans at this location are performed using dose reduction to ALARA by means of automated expos ure control. Signer Name: Florin Schuster MD Signed: 05/31/2021 3:23 PM Workstation Name: [id number]
[2021-05-31 15:30] LABS: Blood Urea Nitrogen 5 mg/dL (9-20); Calcium 8.5 mg/dL (8.4-10.2); Hemolysis Index 4
[2021-05-31 15:35] LABS: BUN/Creatinine Ratio 7
--- NOTE | 2021-06-01 08:58 | Emergency Department Report ---
Blank Doc - Documentation Documentation: Patient was here after being seen by another provider. I did review the trinity francisco's case this morning. Patient was clinically sober. His imaging had been reviewed. Patient was subsequently discharged.
[2021-06-01 09:54] VITALS: BP 168/74
== END 2021-06-01 10:32 | disposition home or self-care (01) ==
LOC: ED 13:40
DX: S19.9XXA Unspecified injury of neck, initial encounter (principal); R51.9 Headache, unspecified; F10.929 Alcohol use, unspecified with intoxication, unspecified; Z79.899 Other long term (current) drug therapy; W01.0XXA Fall on same level from slipping, tripping and stumbling without subsequent striking against object, initial encounter; Y93.89 Activity, other specified; Y92.89 Other specified places as the place of occurrence of the external cause; Y99.8 Other external cause status
CPT/HCPCS: 36415; 70450; 72125; 80048; 80320; 85025; 99284; G0480

== ENCOUNTER 2021-11-04 10:41 | Emergency (ER) | payer MEDICARE ==
--- NOTE | 2021-11-04 11:41 | Emergency Department Report ---
ED General Adult HPI - General Chief complaint: Pain General Stated complaint: EDEMA/ABD PAIN Time Seen by Provider: 11/04/21 11:32 Source: patient, EMS Mode of arrival: Stretcher Limitations: No Limitations - History of Present Illness Initial comments: Patient is 60 years old male with history of hypertension noncompliant with his medication. Patient brought to the emergency room via EMS from a local doctor office for evaluation. Patient stated that he went to his doctor for the first time. Patient stated that she is having pain all over especially neck, back and abdomen. He also reported abdominal distention and bilateral lower extremity ed mary. Patient reported drinking alcohol daily for a long period of time. Patient stated that last drink was yesterday. He denied any fever or chills. No chest pain. - Related Data Previous Rx's Medication Instructions Recorded Last Taken Type Thiamine [Vitamin B-1] 100 mg PO QDAY #30 tablet 11/17/17 Unknown Rx amLODIPine 10 mg PO DAILY #30 tab 03/21/20 Unknown Rx Allergies Allergy/AdvReac Type Severity Reaction Status Date / Time No Known Allergies Allergy Verified 11/04/21 10:48 ED Review of Systems ROS: Stated complaint: EDEMA/ABD PAIN Other details as noted in HPI Comment: All other systems reviewed and negative Constitutional: denies: chills, fever Respiratory: shortness of breath, SOB with exertion, SOB at rest. denies: cough, wheezing Cardiovascular: denies: chest pain, palpitations Gastrointestinal: abdominal pain. denies: nausea, vomiting, diarrhea, constipation, hematemesis, hematochezia Musculoskeletal: denies: back pain Neurological: denies: headache, weakness, numbness, paresthesias, confusion, abnormal gait Psychiatric: denies: homicidal thoughts, suicidal thoughts ED Past Medical Hx - Past Medical History Hx Hypertension: Yes Hx Renal Disease: Yes (ARF) Hx Seizures: Yes (alcohol withdrawal) Hx Psychiatric Treatment: Yes (alcohol abuse) Additional medical history: GI bleed,frequent falls r/t intoxication with multiple FX'S, ANEMIA WITH BLOOD TRANSFUSIONS - Surgical History Additional Surgical History: unk, MULTIPLE FXS - Social History Smoking Status: Current Every Day Smoker - Medications Home Medications: Home Medications Medication Instructions Recorded Confirmed Last Taken Type Thiamine [Vitamin B-1] 100 mg PO QDAY #30 tablet 11/17/17 03/18/20 Unknown Rx amLODIPine 10 mg PO DAILY #30 tab 03/21/20 Unknown Rx ED Physical Exam - General Limitations: No Limitations General appearance: alert, in no apparent distress - Head Head exam: Present: atraumatic, normocephalic, normal inspection - Eye Eye exam: Present: normal appearance - ENT ENT exam: Present: normal exam, normal orophraynx, mucous membranes moist - Neck Neck exam: Present: normal inspection, full ROM. Absent: tenderness, meningismus - Respiratory Respiratory exam: Present: normal lung sounds bilaterally - Cardiovascular Cardiovascular Exam: Present: regular rate, normal rhythm, normal heart sounds - GI/Abdominal GI/Abdominal exam: Present: soft, distended, normal bowel sounds. Absent: tenderness, guarding, rebound, rigid, organomegaly, mass, bruit, pulsatile mass, hernia - Extremities Exam Extremities exam: Present: pedal edema - Back Exam Back exam: Present: normal inspection, full ROM. Absent: CVA tenderness (R), CVA tenderness (L) - Neurological Exam Neurological exam: Present: alert, oriented X3, CN II-XII intact, normal gait, reflexes normal. Absent: motor sensory deficit - Psychiatric Psychiatric exam: Present: normal mood - Skin Skin exam: Present: warm, intact, normal color ED Course Vital Signs 11/04/21 11/04/21 11/04/21 10:46 12:27 12:28 Pulse Rate 88 63 64 Respiratory 12 12 Rate Blood Pressure 171/89 Blood Pressure 170/100 171/89 [Left] O2 Sat by Pulse 100 99 99 Oximetry ED Medical Decision Making - Lab Data Result diagrams: 11/04/21 12:05 11/04/21 12:05 - EKG Data -: EKG Interpreted by Nd Rate: normal - EKG Data 11/04/21 14:48 Atrial fibrillation with a heart rate of 64. - Radiology Data Radiology results: report reviewed - Medical Decision Making Patient is 60 years old male with history of hypertension noncompliant with his medication. Patient brought to the emergency room via EMS from a local doctor office for evaluation. Patient stated that he went to his doctor for the first time. Patient stated that she is having pain all over especially neck, back and abdomen. He also reported abdominal distention and bilateral lower extremity edema. Patient reported drinking alcohol daily for a long period of time. Patient stated that last drink was yesterday. He denied any fever or chills. No chest pain. Patient remained stable in the ER with a stable vital sign for slightly elevated systolic blood pressure of up to 160. CIWA score is 8. Patient received Ativan 2 mg IV. Labs reviewed and is unremarkable. Chest x-ray is negative for acute finding. CT abdomen and pelvis with IV contrast is negative for acute finding. Patient counseled about alcohol abuse and offer referral to outpatient rehab. Again patient denying any suicidal or homicidal ideation. I started patient on Librium and advised him to follow-up with his primary care physician in the next 2 to 3 days and to return to the ER if he develop any new symptoms. Critical care attestation.: If time is entered above; I have spent that time in minutes in the direct care of this critically ill patient, excluding procedure time. ED Disposition Clinical Impression: Alcohol withdrawal, Malignant hypertension, Abdominal pain Disposition: 01 HOME / SELF CARE / HOMELESS Is pt being admited?: No Condition: Stable Instructions: Hypertension (ED), Abdominal Pain, Adult, [id number], Hypertension, Adult, [id number], Alcohol Withdrawal Syndrome, [id number] Referrals: PRIMARY CARE, [Primary Care Provider] - 3-5 Days
[2021-11-04] MEDS ORDERED: LORazepam 2 MG/ML VIAL IV PRN ×3 (11:47)
[2021-11-04 12:28] VITALS: BP 171/89
--- NOTE | 2021-11-04 12:32 | XRay Report ---
CHEST 1 VIEW 11/04/2021 11:42 AM INDICATION / CLINICAL INFORMATION: Dyspnea. COMPARISON: 08/08/2019 FINDINGS: SUPPORT DEVICES: None. HEART / MEDIASTINUM: No significant abnormality. LUNGS / PLEURA: No significant pulmonary or pleural abnormality. No pneumothorax. ADDITIONAL FINDINGS: No significant additional findings. IMPRESSION: 1. No acute findings. Signer Name: Andrew Lima Jr, MD Signed: 11/04/2021 12:27 PM Workstation Name: [id number]
[2021-11-04 12:40] LABS: Hematocrit 40.1 % (35.5-45.6); Hemoglobin 13.3 gm/dl (11.8-15.2); Lymphocytes # (Auto) 1.5 K/mm3 (1.2-5.4); Lymphocytes % (Auto) 38.9 % (13.4-35.0); Mean Corpuscular HGB Conc 33 % (32-34); Mean Corpuscular Volume 116 fl (84-94); Monocytes # (Auto) 0.3 K/mm3 (0.0-0.8); Monocytes % (Auto) 7.7 % (0.0-7.3); Platelet Count 113 K/mm3 (140-440); Red Blood Count 3.44 M/mm3 (3.65-5.03); Red Cell Distribution Width 14.3 % (13.2-15.2)
[2021-11-04 12:44] LABS: Bilirubin,Urine Negative (Negative); Color,Urine Straw (Yellow)
[2021-11-04 12:45] LABS: Blood,Urine Negative (Negative); PH,Urine 6.5 (5.0-7.0)
[2021-11-04 12:46] LABS: Protein,Urine <30 mg dL mg/dL (Negative)
[2021-11-04 12:51] LABS: Amphetamine Screen,Urine Negative; Benzodiazepines Screen,Urine Negative; Cannabinoid Screen,Urine Negative; Cocaine Screen,Urine Negative; Methadone Screen,Urine Negative; Opiate Screen,Urine Negative
[2021-11-04 12:56] LABS: BUN/Creatinine Ratio 8; Blood Urea Nitrogen 6 mg/dL (9-20); Hemolysis Index 47
[2021-11-04 13:01] LABS: Bilirubin,Direct 0.2 mg/dL (0-0.2)
[2021-11-04 13:20] LABS: INR 1.03 (0.87-1.13)
[2021-11-04 13:21] LABS: Partial Thromboplastin Time 31.9 Sec. (24.2-36.6)
--- NOTE | 2021-11-04 14:14 | Cat Scan Report ---
CT ABDOMEN AND PELVIS WITH CONTRAST HISTORY: abdominal pain 100 ML OMNI 300 COMPARISON: None. TECHNIQUE: Axial CT images were obtained through the abdomen and pelvis after 100 cc of IV contrast. Sagittal and coronal reformatted images. All CT scans at this location are performed using CT dose re duction for ALARA by means of automated exposure control. FINDINGS: CT ABDOMEN: Lung Bases: Clear. Liver: The liver is mildly hypodense. No enlargement or focal lesion. Biliary: No significant abnormality. Spleen: No significant abnormality. Unenlarged. Pancreas: No significant abnormality. Adrenals: No significant abnormality. Kidneys: No significant abnormality. Lymphatics: No lymphadenopathy. Vasculature: No significant abnormality. Bowel/Peritoneum: No evidence for obstruction or focal inflammation. There are mild to moderate diver ticular changes in the distal colon. The appendix is normal. No evidence for ascites, fluid collectio n or free air. CT PELVIS: : No significant abnormality. Osseous Structures: No acute injury or bone lesion. Chronic left pelvic rami fractures are noted. Mil d thoracolumbar spondylosis Additional Findings: None IMPRESSION: No acute inflammatory process is appreciated. Mild hepatic steatosis. Diverticulosis of the distal colon. Signer Name: Andrew Lima Jr, MD Signed: 11/04/2021 2:09 PM Workstation Name: [id number]
--- NOTE | 2021-11-05 12:10 | Electrocardiograph Report ---
[facility] Test Date: 2021-11-04 Test Time: 11:47:31 Pat Name: LISSETT VILLALOBOS Department: Room: Gender: M Supplemental Manager: СЕРГЕЙ : 1960 Requested By: KRYSTA JOY Order Number: [id number] Reading MD: Lori Mercado Measurements Intervals [place] Rate: 64 P: AK: QRS: -37 QRSD: 88 T: -10 QT: 478 QTc: 495 Interpretive Statements Sinus rhythm Left axis deviation Poor R wave progress No previous ECG available for comparison Electronically Signed On 11-05-2021 12:10:27 EDT by Lori Mercado
== END 2021-11-04 17:26 | disposition home or self-care (01) ==
LOC: ED 10:41
DX: F10.239 Alcohol dependence with withdrawal, unspecified (principal); I10 Essential (primary) hypertension; R10.9 Unspecified abdominal pain; F17.200 Nicotine dependence, unspecified, uncomplicated
CPT/HCPCS: 71045; 74177; 80048; 80076; 80307; 81001; 83690; 83735; 83880; 84484; 85025; 85610; 85730; 93005; 96374; 99285; J2060; Q9967; 84145